=== PATIENT | male | born 1930 | race Caucasian/White ===

== ENCOUNTER 2016-03-12 19:46 | Inpatient (IN) | payer MEDICARE ==
[~2016-03-12] VITALS: Ht 304.8 cm; Wt 82.1 kg
[~2016-03-12 19:46] MED LIST: ASPI81TA11 PO; CEPH-460 PO; PRIN5TAB PO; SIMV20TA PO
[2016-03-12 20:02] VITALS: BP 180/100; PULSE 89; RESP 18; TEMP 98.1; O2SAT 97; O2SAT 98
[2016-03-12] MEDS ORDERED: SODIUM CHLOR 0.9% 1000 ML INJ 1,000 ML IV ONE (20:10)
[2016-03-12 20:20] VITALS: BP 157/81; PULSE 88; RESP 19; O2SAT 96
[2016-03-12 20:25] LABS: AUTOMATED NEUTROPHIL # 9.2 TH/MM3 (1.8-7.7); BASOPHIL % 0.2 % (0.0-2.0); EOSINOPHIL # 0.1 TH/MM3 (0-0.4); EOSINOPHIL % 0.6 % (0.0-4.0); HEMATOCRIT 37.3 % (39.0-51.0); HEMO FLAGS DIFF FINAL; LYMPH % 5.6 % (9.0-44.0); LYMPHOCYTE # 0.6 TH/MM3 (1.0-4.8); MEAN CELL VOLUME 90.8 FL (80.0-100.0); MONO % 2.9 % (0.0-8.0); NEUT % 90.7 % (16.0-70.0); PLATELET COUNT 190 TH/MM3 (150-450); RED BLOOD COUNT 4.11 MIL/MM3 (4.50-5.90); RED CELL DISTRIBUTION WIDTH 13.2 % (11.6-17.2); WHITE BLOOD COUNT 10.2 TH/MM3 (4.0-11.0)
--- NOTE | 2016-03-12 20:29 | RADHPO ---
EXAM DATE/TIME: 03/12/2016 20:05 [facility] COMPARISON: CT BRAIN W/O CONTRAST, January 03, 2016, 7:19. INDICATIONS : Stroke alert. Weakness. RADIATION DOSE: 59.69 CTDIvol (mGy) This report was called called to Dr. Cochran at 822 MEDICAL HISTORY : Cardiovascular disease. Cerebrovascular disease. SURGICAL HISTORY : None. ENCOUNTER: Initial ACUITY: 1 day PAIN SCALE: 3/10 LOCATION: cranial TECHNIQUE: Multiple contiguous axial images were obtained of the head. Using automated exposure control and adj ustment of the mA and/or kV according to patient size, radiation dose was kept as low as reasonably a chievable to obtain optimal diagnostic quality images. FINDINGS: There is marked central and cortical atrophy with dilatation of ventricular and sulcal spaces. There is no parenchymal hemorrhage, acute infarction or mass lesion identified. Old infarct is seen in th e left anterior sylvian region. There are no extra-axial fluid collections appreciated. The posteri or fossa is unremarkable with midline fourth ventricle. The portion of the orbits and paranasal sinu ses visualized are unremarkable. CONCLUSION: Negative for an acute process Old infarct on the left. Raúl Avendaño MD FACR on March 12, 2016 at 20:23 Board Certified Radiologist. This report was verified electronically.
[2016-03-12 20:31] LABS: CHLORIDE 106 MEQ/L (98-107); POTASSIUM 4.4 MEQ/L (3.5-5.1); SODIUM (NA) 141 MEQ/L (136-145)
[2016-03-12 20:34] LABS: ANION GAP 10 MEQ/L (5-15); BICARBONATE 24.9 MEQ/L (21.0-32.0); BLOOD UREA NITROGEN 27 MG/DL (7-18)
[2016-03-12 20:37] LABS: GLOMERULAR FILTRATION RATE 38 ML/MIN (>89); PROTHROMBIN TIME - PATIENT 10.7 SEC (9.8-11.6)
--- NOTE | 2016-03-12 20:44 | PD ---
HPI Chief Complaint: Stroke Alert Time Seen by Provider: 20:10 Travel History International Travel<30 days: No Contact w/Intl Traveler<30days: No Traveled to known affect area: No History of Present Illness HPI This 85-year-old male is brought by private vehicle. He apparently went to a neighbor's house asking for help. The neighbor apparently said that he only would answer questions yes and no. Patient was very unsteady on his feet. About 20 years ago he had a stroke which left him with some right-sided weakness and some mild expressive aphasia. He does take aspirin. The patient at this time is a phasic and unable to give much history. He was apparently alone until he went to the neighbor's house. He was quite unsteady on the way here. [facility] Past Medical History Cardiac Catheterization: Yes High Cholesterol: Yes Chest Pain: Yes Cerebrovascular Accident: Yes (1989) Diminished Hearing: No Hypertension: Yes Immunizations Current: No Past Surgical History Tonsillectomy: Yes Social History Alcohol Use: Yes (SHOT OF WINE AT DINNER) Tobacco Use: No Substance Use: No Allergies-Medications (Allergen,Severity, Reaction): Coded Allergies: Penicillin (Verified Allergy, Intermediate, RASH, 03/12/16) Reported Meds & Prescriptions Reported Meds & Active Scripts Active Reported Simvastatin 20 Mg Tab 10 Mg PO DAILY Prinivil (Lisinopril) 5 Mg Tab 10 Mg PO DAILY Review of Systems ROS Limitations: Clinical Condition Physical Exam Narrative GENERAL: Well-developed male SKIN: Warm and dry. HEAD: Atraumatic. Normocephalic. EYES: Pupils equal and round. No scleral icterus. No injection or drainage. He keeps his eyes closed most part. He will also on command ENT: No nasal bleeding or discharge. Mucous membranes pink and moist. NECK: Trachea midline. No JVD. CARDIOVASCULAR: Regular rate and rhythm. No murmur appreciated. RESPIRATORY: No accessory muscle use. Clear to auscultation. Breath sounds equal bilaterally. GASTROINTESTINAL: Abdomen soft, non-tender, nondistended. Hepatic and splenic margins not palpable. MUSCULOSKELETAL: No obvious deformities. No clubbing. No cyanosis. No edema. NEUROLOGICAL: Awake and alert. No obvious cranial nerve deficits. He appears symmetrically weak. 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 The right is slightly weaker than the left. The right leg also appears slightly weaker than the left. There is an upgoing Babinski on the right. He is not able to answer questions. He is not able to name objects. PSYCHIATRIC: Not testable Data Data Last Documented VS Vital Signs Date Time Temp Pulse Resp B/P Pulse Ox O2 Delivery O2 Flow Rate FiO2 03/12/16 21:40 90 18 165/84 95 Room Air 03/12/16 20:02 98.1 03/12/16 20:02 21 Orders Cath For Specimen (03/12/16 20:10) Neuro Checks Q2HX12,Q4H (03/12/16 20:10) Nursing Bedside Swallow Assess .ONCE (03/12/16 20:10) Activity Bed Rest (03/12/16 20:10) Diet Npo (03/13/16 Breakfast) Prothrombin Time / Inr (Pt) (03/12/16 20:10) Act Partial Throm Time (Ptt) (03/12/16 20:10) Complete Blood Count With Diff (03/12/16 20:10) Basic Metabolic Panel (Bmp) (03/12/16 20:10) Fibrinogen (03/12/16 20:10) Creatine Kinase (Cpk) (03/12/16 20:10) Troponin I (03/12/16 20:10) Ua Includes Microscopic (03/12/16 20:10) Drug Screen, Random Urine (03/12/16 20:10) Type And Screen (03/12/16 20:10) Ct Brain W/O Iv Contrast(Rout) (03/12/16 ) Electrocardiogram (03/12/16 ) Consult Neurology (03/12/16 20:10) Sodium Chlor 0.9% 1000 Ml Inj (Ns 1000 M (03/12/16 20:10) Blood Glucose (03/12/16 20:10) Ecg Monitoring (03/12/16 20:10) Iv Access Insert/Monitor (03/12/16 20:10) NPO (03/12/16 20:10) Oximetry (03/12/16 20:10) Oxygen Administration (03/12/16 20:10) Resp Oxygen Gatito C Titrat 1-4 L (03/12/16 20:10) Mri Brain W/O Contrast (03/12/16 20:26) Ondansetron Inj (Zofran Inj) (03/12/16 20:45) (Hub Use Only)Inp Phy Cons/Ref (03/12/16 ) Electrocardiogram (03/12/16 20:28) Chest, Single Ap (03/12/16 22:03) Labs Laboratory Tests Test 03/12/16 20:20 White Blood Count 10.2 TH/MM3 Red Blood Count 4.11 MIL/MM3 Hemoglobin 12.3 GM/DL Hematocrit 37.3 % Mean Corpuscular Volume 90.8 FL Mean Corpuscular Hemoglobin 30.0 PG Mean Corpuscular Hemoglobin 33.0 % Concent Red Cell Distribution Width 13.2 % Platelet Count 190 TH/MM3 Mean Platelet Volume 7.2 FL Neutrophils (%) (Auto) 90.7 % Lymphocytes (%) (Auto) 5.6 % Monocytes (%) (Auto) 2.9 % Eosinophils (%) (Auto) 0.6 % Basophils (%) (Auto) 0.2 % Neutrophils # (Auto) 9.2 TH/MM3 Lymphocytes # (Auto) 0.6 TH/MM3 Monocytes # (Auto) 0.3 TH/MM3 Eosinophils # (Auto) 0.1 TH/MM3 Basophils # (Auto) 0.0 TH/MM3 CBC Comment DIFF FINAL Differential Comment Prothrombin Time 10.7 SEC Prothromb Time International 1.0 RATIO Ratio Activated Partial 25.0 SEC Thromboplast Time Fibrinogen 280 mg/dL Sodium Level 141 MEQ/L Potassium Level 4.4 MEQ/L Chloride Level 106 MEQ/L Carbon Dioxide Level 24.9 MEQ/L Anion Gap 10 MEQ/L Blood Urea Nitrogen 27 MG/DL Creatinine 1.70 MG/DL Estimat Glomerular Filtration 38 ML/MIN Rate Random Glucose 156 MG/DL Calcium Level 8.9 MG/DL Total Creatine Kinase 87 U/L Troponin I LESS THAN 0.02 NG/ML Blood Type A NEGATIVE Blood Bank Comment [facility] Medical Decision Making Medical Screen Exam Complete: Yes Emergency Medical Condition: Yes Medical Record Reviewed: Yes Differential Diagnosis Differential includes metabolic disorder, cerebral hemorrhage, CVA Narrative Course Patient appears to have an expressive aphasia and symmetric weakness. He was declared a stroke alert. CT scan shows evidence of previous CVA, left brain. There are no acute abnormalities. Diagnosis Primary Impression: Acute CVA (cerebrovascular accident) Admitting Information Admitting Physician Requests: Admit Abner Sheikh MD Mar 12, 2016 20:44
[2016-03-12] MEDS ORDERED: ONDANSETRON HCL 4 MG/2 ML VIAL IV PUSH ONE (20:45)
[2016-03-12 20:52] LABS: CREATINE KINASE 87 U/L (39-308)
[2016-03-12 21:00] VITALS: BP 163/82; PULSE 87; RESP 18; O2SAT 91
[2016-03-12 21:40] VITALS: BP 165/84; PULSE 90; RESP 18; O2SAT 95
[2016-03-12 22:00] VITALS: O2SAT 97
--- NOTE | 2016-03-12 22:04 | RADHPO ---
EXAM DATE/TIME: 03/12/2016 21:39 [facility] COMPARISON: No previous studies available for comparison. INDICATIONS : Stroke. MEDICAL HISTORY : Hypertension. Myocardial infarction. Carotid stenosis. SURGICAL HISTORY : Carotid endarterectomy. Fusion, lumbar. ENCOUNTER: Initial ACUITY: 1 day PAIN SCORE: Nonresponsive. LOCATION: Bilateral cranial TECHNIQUE: Multiplanar, multisequence MRI of the brain was performed without contrast. FINDINGS: There is no restricted diffusion evident. Moderate periventricular white matter change s are noted with an old infarct in the sylvian region on the left. Ventricular size is appropriate. Posterior fossa is unremarkable. There is no parenchymal hemorrhage. There is no evidence of acute infarction. There is no evidence f or mass effect. CONCLUSION: Old infarct on the left, negative for an acute process. Raúl Avendaño MD FACR on March 12, 2016 at 21:56 Board Certified Radiologist. This report was verified electronically.
[2016-03-12] MEDS ORDERED: NALOXONE HCL 0.4 MG/ML AMP IV PRN (22:15)
[2016-03-12] MEDS ORDERED: SODIUM CHLORIDE 0.9% FLUSH 5 ML FLUSH FLUSH PRN (22:15)
--- NOTE | 2016-03-12 22:29 | RADHPO ---
EXAM DATE/TIME: 03/12/2016 22:12 [facility] COMPARISON: CHEST SINGLE AP, December 21, 2011, 22:35. INDICATIONS : General weakness. Vomiting. MEDICAL HISTORY : None. SURGICAL HISTORY : None. ENCOUNTER: Initial ACUITY: 1 day PAIN SCORE: 0/10 LOCATION: Bilateral chest FINDINGS: Minimal bibasilar parenchymal changes are noted worse on the right than the left. Ther e is no alveolar consolidation, pleural effusion or pneumothorax. Heart and pulmonary vascularity ar e normal. Degenerative changes are seen about both shoulders. CONCLUSION: Minimal bibasilar parenchymal changes worse on the right than the left. Raúl Avendaño MD FACR on March 12, 2016 at 22:25 Board Certified Radiologist. This report was verified electronically.
[2016-03-12 22:45] VITALS: BP 163/87; PULSE 92; RESP 20; O2SAT 97
[2016-03-12] MEDS ORDERED: ASPI1TAB69 PO ×2 (22:54)
[2016-03-13] VITALS (31 sets, daily range): BP systolic 103–164; BP diastolic 43–82; PULSE 58–100; RESP 16–30; TEMP 98–99.1; O2SAT 94–99
[2016-03-13 00:23] LABS: BLOOD, URINE SMALL (NEG); GLUCOSE,URINE NEG (NEG); KETONE, URINE TRACE mg/dL (NEG); NITRITE,URINE NEG (NEG); PH, URINE 6.5 (5.0-8.5)
[2016-03-13 00:33] LABS: BARBITURATES, URINE NEG (NEG)
[2016-03-13 00:35] LABS: HYALINE CAST, URINE 0-2 /lpf (RARE); METHOD OF COLLECTION CLEAN CATCH; MUCUS URINE OCC /lpf (OCC); URINE COLOR YELLOW (YELLW/STRAW)
[2016-03-13 00:36] LABS: SQUAMOUS EPITHELIAL CELL URINE 0-5 /hpf (0-5)
[2016-03-13 00:37] LABS: RENAL EPITHELIAL CELLS 0-5 /hpf
[2016-03-13 00:43] LABS: AMPHETAMINE, URINE NEG (NEG)
[2016-03-13 00:46] LABS: COCAINE, URINE NEG (NEG)
[2016-03-13] MEDS ORDERED: CHLORHEXIDINE GLUCONATE 2 % 1 PACK (2 CLOTHS)(taper/protocol) TOP SCH (04:00)
[2016-03-13] MEDS ORDERED: CHLORHEXIDINE GLUCONATE 2 % 1 PACK (2 CLOTHS)(extra cloths) TOP PRN (05:00)
[2016-03-13 05:24] LABS: AUTOMATED NEUTROPHIL # 7.9 TH/MM3 (1.8-7.7); BASOPHIL % 0.3 % (0.0-2.0); EOSINOPHIL % 0.1 % (0.0-4.0); HEMATOCRIT 35.3 % (39.0-51.0); HEMO FLAGS DIFF FINAL; LYMPH % 5.9 % (9.0-44.0); LYMPHOCYTE # 0.5 TH/MM3 (1.0-4.8); MEAN CORPUSCULAR HEMOGLOBIN 30.5 PG (27.0-34.0); MEAN CORPUSCULAR HGB CONC 32.8 % (32.0-36.0); NEUT % 87.7 % (16.0-70.0); PLATELET COUNT 184 TH/MM3 (150-450); RED BLOOD COUNT 3.79 MIL/MM3 (4.50-5.90); RED CELL DISTRIBUTION WIDTH 13.4 % (11.6-17.2); WHITE BLOOD COUNT 8.9 TH/MM3 (4.0-11.0)
[2016-03-13 05:30] LABS: POTASSIUM 4.8 MEQ/L (3.5-5.1)
[2016-03-13 06:04] LABS: BICARBONATE 26.3 MEQ/L (21.0-32.0)
[2016-03-13] MEDS ORDERED: SODIUM CHLORIDE 0.9% FLUSH 5 ML FLUSH FLUSH SCH (09:00)
--- NOTE | 2016-03-13 09:40 | RADHPO ---
EXAM DATE/TIME: 03/13/2016 08:04 [facility] COMPARISON: No previous studies available for comparison. INDICATIONS : Syncope. MEDICAL HISTORY : Stroke. Hypercholesterolemia. Hypertension. Hyperlipidemia. SURGICAL HISTORY : Tonsillectomy. Cardiac cath. Spinal fusion. ENCOUNTER: Initial ACUITY: 1 day PAIN SCORE: 10 LOCATION: Bilateral neck PEAK SYSTOLIC VELOCITIES (cm/sec): ICA/CCA RATIO: Right: 1.7 Left: 1.5 ICA: Right: 140 Left: 122 CCA: Right: 81 Left: 84 ECA: Right: 112 Left: 124 VERTEBRAL: Right: 48 antegrade Left: 58 antegrade Elevated flow velocities and ICA/CCA ratios have been found to correlate with increased degrees of vessel stenosis, calculated as percentage of diameter relative to a normal segment of distal ICA/CCA FINDINGS: RIGHT CAROTID: Grayscale imaging demonstrates moderate calcifications within the region of the carotid bulb with essie ocities within the proximal internal carotid artery and mid internal carotid artery consistent with a 50-69% stenosis. LEFT CAROTID: No significant stenosis is visualized. The waveforms are within normal limits. VERTEBRAL ARTERIES: Antegrade flow is seen in both vertebral arteries. MISCELLANEOUS: None. CONCLUSION: Velocities within the right proximal and mid internal carotid artery consistent with a 50-69% stenosi s. Moderate vascular calcifications are seen within the carotid bulb bilaterally.. Maureen Diaz MD on March 13, 2016 at 9:33 Board Certified Radiologist. This report was verified electronically.
--- NOTE | 2016-03-13 09:45 | MB ---
cc: SCOTT BELLE MD DATE OF CONSULTATION 03/12/2016 REASON FOR CONSULTATION Stroke alert. HISTORY OF THE PRESENT ILLNESS An 85-year-old male who was brought to the [facility] by a private vehicle. He reportedly went to a neighbor's house asking for help. Last time was seen as per his [id number] who is a physician here, states that it was around 7:30 but not certain about the exact time. When he knocked at the neighbor's house and he was unsteady on his feet and he was having difficulty in his speech. The patient had past medical history of stroke with residual right-sided weakness upper and lower extremities with a baseline "expressive dysphasia" as described by the [id number], but not to the point where he is now in terms of speech difficulty as the [id number] states. Upon arrival to the emergency room the patient was minimally reacting and not answering questions, however, during the encounter when I was with the patient he looked sleepy but he would reply to questions and use by yes and no and occasionally uses some words. The patient is on aspirin 81 mg daily[address] A head CT scan in the emergency department was reported to be negative for an acute process. However, there is evidence of old infarct in the left anterior sylvian fissure with no acute intracranial abnormality. PAST MEDICAL HISTORY 1. Hyperlipidemia. 2. Coronary artery disease. 3. Stroke in the with residual right-sided weakness. 4. Hypertension. PAST SURGICAL HISTORY Tonsillectomy. SOCIAL HISTORY Lives all by himself and independent in his daily activities. He drinks a shot of wine at dinner. Denies tobacco and substance abuse. REVIEW OF SYSTEMS A 12 point review of systems is negative except for what is stated in the HPI. ALLERGIES PENICILLIN. MEDICATIONS 1. Simvastatin. 2. Lisinopril. 3. Aspirin 81 mg. FAMILY HISTORY Noncontributory. PHYSICAL EXAMINATION GENERAL: Not in apparent distress. Poor historian. HEENT: Atraumatic, normocephalic. Intact hearing and intact vision. NECK: Trachea in the midline. No carotid bruits. CARDIOVASCULAR: Regular rate and rhythm. RESPIRATORY: No accessory muscle use. Clear to auscultation. No wheezes. MUSCULOSKELETAL: No obvious deformity, clubbing, cyanosis or edema. NEUROLOGICAL: Awake, alert, oriented, intact naming. Intact repetition. No diplopia. No nystagmus. Pupils 2-3 mm equally reacting to light. No facial weakness. Intact sensation over the face. Bilateral upper extremities grade 5/5 with no arm drift. Notable bilateral hand tremor (chronic). Bilateral lower extremities unable to accurately assess because of lack of cooperation during the exam, however, he moves both lower extremities equally. Plantae and dorsiflexion 5/5. Right hip flexion 5-/5, left hip flexion 5/5. Reflexes are 3+ right upper and lower extremity, 2+ left upper and lower extremities. Plantars right upgoing, left equivocal. Sensation is intact throughout bilateral and symmetrical. Gait and stance are deferred at this time. PSYCHOLOGIC: Not able to assess at this time. LABORATORY DATA White blood cells 10.2, hemoglobin 12.3, MCV 90.8. INR 1.0.Sodium 141, potassium 4.4, chloride 106 anion gap 10, BUN 27, creatinine 1.7, random glucose 156, calcium 8.9. IMAGING Diagnostic imaging - Head CT scan without contrast was reported with marked central and cortical atrophy with dilation of ventricular sulcal spaces. No parenchymal hemorrhage, acute infarction or mass lesion identified. Old infarction seen in the left anterior sylvian fissure. No extra-axial fluid collection. Negative for an acute abnormality. 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 NIH stroke scale is 0 apart from expressive dysphasia with no hemianopsia. I discussed with the [id number] and his son about the IV tPA, they were reluctant to do that and still given the fact that the exact time of symptoms is unknown, that would make the decision to give IV tPA to be reconsidered, however, the family did not verbally consent to tPA. An administrative technician was called for brain MRI restricted diffusion study, I reviewed and did not appreciate a restricted diffusion, pending official read by radiology. PLAN 1. Neurological checks q.one hourly. 2. Continue aspirin. 3. DVT prophylaxis. 4. GI prophylaxis. 5. PT, OT and speech therapy recommendations are appreciated. 6. Carotid ultrasound. 7. Telemetry. 8. Cardiac echo. 9. MRA brain. 10. MRA neck. Thank you for the opportunity to participate in the care of your patient. MD MARY Ford/KK /9:37 PM /9:38 AM [id number]
[2016-03-13 09:46] LABS: HDL CHOLESTEROL 73.7 MG/DL (40.0-60.0); LDL CHOLESTEROL 51 MG/DL (0-99)
[2016-03-13] MEDS ORDERED: ASPIRIN EC 81 MG TABEC PO SCH (10:45)
--- NOTE | 2016-03-13 12:47 | HHI.HP ---
[facility] Service [place] [facility] Primary Care Physician Lachelle King MD Admission Diagnosis CVA, ALTERED MENTAL STATUS Diagnoses: (1) Expressive dysphasia Diagnosis: Principal (2) History of CVA (cerebrovascular accident) Diagnosis: Secondary (3) Hypertension Diagnosis: Secondary (4) Hyperlipidemia Diagnosis: Secondary Chief Complaint: Expressive dysphasia Travel History International Travel<30 Days: No Contact w/Intl Traveler <30 Da: No Traveled to Known Affected Are: No History of Present Illness 85-year-old male with known history of CVA, expressive dysphasia, hypertension, hyperlipidemia who presented to hospital because of worsening neurological symptoms. The patient himself cannot give any accurate information. The patient's son indicates that his father doesn't remember anything around that episode. Possible some amnesia. The patient does answer questions if answers remained simple to single word answers. Patient was in his normal state of health until yesterday when it was indicated that he had episode of nausea vomiting, shortly after that he had worsening neurological symptoms in which he tried to drive himself to the hospital, however he did not and would not, neighbor's door. At that time is indicated by ER note that they noticed that he had difficulty in speaking can only answer yes and no, had some gait disturbance and patient was brought to the emergency department for evaluation. Initial CT and MRI of the brain did not indicate any acute stroke. Patient was recommended admission for further evaluation management. Upon evaluating the patient today. Son indicates that the patient appears to be at his baseline when he comes to his speech. Workup is still in process. Does appears patient does get frustrated when trying to speak and answer questions. There is no indication that he has any weakness unilaterally or bilaterally. No paresthesia. Review of Systems Constitutional: DENIES: Diaphoretic episodes, Fatigue, Fever, Weight gain, Weight loss, Chills, Dizziness, Change in appetite, Night Sweats Eyes: DENIES: Blurred vision, Diplopia, Eye inflammation, Eye pain, Vision loss , Double Vision Ears, nose, mouth, throat: DENIES: Vertigo, Nasal discharge, Throat pain, Ear Pain, Running Nose, Sinus Pain Respiratory: DENIES: Apneas, Cough, Snoring, Wheezing, Hemoptysis, Sputum production, Shortness of breath Cardiovascular: DENIES: Chest pain, Palpitations, Syncope, Dyspnea on Exertion , Lower Extremity Edema, Orthopnea Gastrointestinal: DENIES: Abdominal pain, Black stools, Bloody stools, Constipation, Diarrhea, Nausea, Vomiting, Difficulty Swallowing, Anorexia Neurologic: COMPLAINS OF: Speech Problems, DENIES: Abnormal gait, Headache, Localized weakness, Paresthesias, Seizures, Tremor, Poor Balance Psychiatric: DENIES: Anxiety, Confusion, Mood changes, Depression Past Family Social History Past Medical History Hypertension Hyperlipidemia History of CVA Past Surgical History Back surgery Reported Medications Last Impressions Carotid Artery Ultrasound 03/13/16 0000 Signed Impressions: Service Date/Time: Sunday, March 13, 2016 08:04 - CONCLUSION: Velocities within the right proximal and mid internal carotid artery consistent with a 50-69%% stenosis. Moderate vascular calcifications are seen within the carotid bulb bilaterally.. Maureen Diaz MD Chest X-Ray 03/12/163 Signed Impressions: Service Date/Time: Saturday, March 12, 2016 22:12 - CONCLUSION: Minimal bibasilar parenchymal changes worse on the right than the left. Raúl Avendaño MD FACR Brain MRI 03/12/166 Signed Impressions: Service Date/Time: Saturday, March 12, 2016 21:39 - CONCLUSION: Old infarct on the left, negative for an acute process. Raúl Avendaño MD FACR Head CT 03/12/16 0000 Signed Impressions: Service Date/Time: Saturday, March 12, 2016 20:05 - CONCLUSION: Negative for an acute process Old infarct on the left. Raúl Avendaño MD FACR Allergies: Coded Allergies: Penicillin (Verified Allergy, Intermediate, RASH, 03/12/16) Family History Reviewed and significant for father having emphysema, Social History Patient states that he quit smoking 15 years ago, he had been smoking since early age. He does drink one glass of wine daily. Denies any illicit drugs Physical Exam Vital Signs Vital Signs Date Time Temp Pulse Resp B/P Pulse Ox O2 Delivery O2 Flow Rate FiO2 03/13/16 08:00 98.2 70 19 119/59 99 03/13/16 07:00 64 17 119/61 03/13/16 06:06 71 03/13/16 06:00 74 19 115/59 95 03/13/16 05:00 72 17 95 03/13/16 04:00 80 18 03/13/16 04:00 76 03/13/16 03:24 98.0 84 22 151/66 03/13/16 03:22 84 18 133/76 96 03/13/16 02:24 86 24 147/73 03/13/16 02:22 86 18 135/59 03/13/16 01:23 100 30 164/68 03/13/16 00:58 98.2 92 25 157/82 96 03/13/16 00:44 90 03/13/16 00:36 95 26 163/78 96 03/13/16 00:35 98.9 90 18 162/75 97 03/12/16 22:45 92 20 163/87 97 Nasal Cannula 2 03/12/16 22:00 97 Nasal Cannula 2.00 03/12/16 22:00 Nasal Cannula 2 03/12/16 21:40 90 18 165/84 95 Room Air 03/12/16 21:00 87 18 163/82 91 Room Air 03/12/16 20:45 97 Room Air 03/12/16 20:45 Room Air 03/12/16 20:20 88 19 157/81 96 Room Air 03/12/16 20:05 Room Air 03/12/16 20:02 98.1 89 18 180/100 98 03/12/16 20:02 97 21 03/12/16 20:02 97 21 Physical Exam GENERAL: Well-developed, well-nourished, in no acute distress. alert and orientated HEENT: Head is normocephalic without any lesions or masses noted. Facial features are symmetric. Eyes: Pupils equal round reactive to light. Extraocular muscles are intact. Conjunctivae were clear. Oropharyngeal: Pharynx without any erythema edema. Tongue is midline without deviation. Buccal mucosa is moist without any masses or lesions NECK: Supple without any masses. Trachea midline no deviation. No JVD, no bruits are appreciated CARDIAC: Regular rhythm, regular rate. S1/S2 are heard. No murmurs gallops or rubs. LUNGS: Clear to auscultation bilaterally. No wheeze, rhonchi or rales. No use of accessory muscles on inspiration or expiration. ABDOMEN: Soft, nontender. Nondistended. Bowel sounds heard in all 4 quadrants. No organomegaly or masses. Negative rebound, negative guarding EXTREMITIES: No edema, pulses are equal bilaterally. No cyanosis or clubbing NEUROLOGY: Mood and affect appear appropriate. Cranial nerves II through XII grossly intact. Muscle strength 5/5 in upper and lower extremities bilaterally. Deep tendon reflexes are 2+ in upper and lower extremities bilaterally. Patient with expressive dysphasia Laboratory Laboratory Tests Test 03/12/16 03/13/16 03/13/16 03/13/16 20:20 00:15 01:00 05:05 White Blood Count 10.2 8.9 Red Blood Count 4.11 3.79 Hemoglobin 12.3 11.6 Hematocrit 37.3 35.3 Mean Corpuscular Volume 90.8 93.0 Mean Corpuscular Hemoglobin 30.0 30.5 Mean Corpuscular Hemoglobin 33.0 32.8 Concent Red Cell Distribution Width 13.2 13.4 Platelet Count 190 184 Mean Platelet Volume 7.2 6.8 Neutrophils (%) (Auto) 90.7 87.7 Lymphocytes (%) (Auto) 5.6 5.9 Monocytes (%) (Auto) 2.9 6.0 Eosinophils (%) (Auto) 0.6 0.1 Basophils (%) (Auto) 0.2 0.3 Neutrophils # (Auto) 9.2 7.9 Lymphocytes # (Auto) 0.6 0.5 Monocytes # (Auto) 0.3 0.5 Eosinophils # (Auto) 0.1 0.0 Basophils # (Auto) 0.0 0.0 CBC Comment DIFF FINAL DIFF FINAL Differential Comment Prothrombin Time 10.7 Prothromb Time International 1.0 Ratio Activated Partial 25.0 Thromboplast Time Fibrinogen 280 Sodium Level 141 141 Potassium Level 4.4 4.8 Chloride Level 106 107 Carbon Dioxide Level 24.9 26.3 Anion Gap 10 8 Blood Urea Nitrogen 27 26 Creatinine 1.70 1.70 Estimat Glomerular Filtration 38 38 Rate Random Glucose 156 130 Calcium Level 8.9 8.0 Total Creatine Kinase 87 Troponin I LESS THAN 0.02 Blood Type A NEGATIVE Antibody Screen NEGATIVE Blood Bank Comment Urine Collection Type CLEAN CATCH Urine Color YELLOW Urine Turbidity CLEAR Urine pH 6.5 Urine Specific [place] 1.016 Urine Protein 30 Urine Glucose (UA) NEG Urine Ketones TRACE Urine Occult Blood SMALL Urine Nitrite NEG Urine Bilirubin NEG Urine Leukocyte Esterase NEG Urine RBC 4-9 Urine Squamous Epithelial 0-5 Cells Urine Renal Epithelial Cells 0-5 Urine Hyaline Casts 0-2 Urine Mucus OCC Urine Opiates Screen NEG Urine Barbiturates Screen NEG Urine Amphetamines Screen NEG Urine Benzodiazepines Screen NEG Urine Cocaine Screen NEG Urine Cannabinoids Screen NEG Nasal Screen MRSA (PCR) NEGATIVE Erythrocyte Sedimentation Rate 10 Triglycerides Level 50 Cholesterol Level 135 LDL Cholesterol 51 HDL Cholesterol 73.7 Cholesterol/HDL Ratio 1.83 Vitamin B12 Level 403 Folate GREATER THAN 20.0 Thyroid Stimulating Hormone 1.310 3rd Gen Result Diagram: 03/13/16 0505 03/13/16 0505 Imaging Last Impressions Carotid Artery Ultrasound 03/13/16 0000 Signed Impressions: Service Date/Time: Sunday, March 13, 2016 08:04 - CONCLUSION: Velocities within the right proximal and mid internal carotid artery consistent with a 50-69%% stenosis. Moderate vascular calcifications are seen within the carotid bulb bilaterally.. Maureen Diaz MD Chest X-Ray 03/12/163 Signed Impressions: Service Date/Time: Saturday, March 12, 2016 22:12 - CONCLUSION: Minimal bibasilar parenchymal changes worse on the right than the left. Raúl Avendaño MD FACR Brain MRI 03/12/166 Signed Impressions: Service Date/Time: Saturday, March 12, 2016 21:39 - CONCLUSION: Old infarct on the left, negative for an acute process. Raúl Avendaño MD FACR Head CT 03/12/16 0000 Signed Impressions: Service Date/Time: Saturday, March 12, 2016 20:05 - CONCLUSION: Negative for an acute process Old infarct on the left. Raúl Avendaño MD FACR Assessment and Plan Assessment and Plan Expressive dysphasia, and a patient with known history of CVA and expressive dysphasia CT and MRI of the brain do not indicate any acute abnormalities. MRI does show old infarct on the left Carotid ultrasound shows 50-69% stenosis on the right carotid artery. Echocardiogram is pending Continue PT/OT/ST Continue aspirin Hypertension Permissive hypertension until cleared by neurology Hyperlipidemia LDL 73 Continue statin DVT prevention Sequential compression devices Written by Guy Lucero PA-C, acting as scribe for Dr. Orantes on 03/13/16 at 1250. The documentation accurately reflects the work and decisions performed face-to- face by Dr. Orantes on 03/13/16 at 1250. Discharge disposition Discharge home in stable condition Activity: Ad cesar. Diet: Healthy heart diet Medications per medication reconciliation Follow-up with primary medical doctor in one week Physician Certification 2 Midnight Certification Type: Admission for Inpatient Services Order for Inpatient Services The services are ordered in accordance with Medicare regulations or non- Medicare payer requirements, as applicable. In the case of services not specified as inpatient-only, they are appropriately provided as inpatient services in accordance with the 2-midnight benchmark. Estimated LOS (days): 1 days is the estimated time the patient will need to remain in the hospital, assuming treatment plan goals are met and no additional complications. Post-Hospital Plan: Not yet determined Problem Qualifiers (1) Hypertension: Qualified Code: I15.9 - Secondary hypertension (2) Hyperlipidemia: Qualified Code: E78.5 - Hyperlipidemia, unspecified hyperlipidemia type Guy Lucero Mar 13, 2016 12:47 Spring Orantes MD Mar 13, 2016 19:46
[2016-03-13] MEDS ORDERED: PRAVASTATIN SOD 20 MG TAB PO SCH (13:30)
[2016-03-13] MEDS ORDERED: LISINOPRIL 10 MG TAB PO SCH (13:30)
--- NOTE | 2016-03-13 16:09 | EC ---
Study Study Date:03/13/2016 STUDY CONCLUSIONS SUMMARY - Left ventricle: The cavity size was normal. Wall thickness was normal. Systolic function was normal. The estimated ejection fraction was in the range of 55% to 60%. Wall motion was normal; there were no regional wall motion abnormalities. - Aortic valve: Valve area: 2.76cm^2 (Vmax). If LV function is below 40, please consider prescribing an ACEI or ARB or document rationale for non-use. PROCEDURE DATA STUDY STATUS: Elective. Procedure: Transthoracic echocardiography. Image quality was fair. Scanning was performed from the parasternal, apical, and subcostal acoustic windows. Study completion: The patient tolerated the procedure well. Transthoracic echocardiography. M-mode, complete 2D, complete spectral Doppler, and color Doppler. Patient status: Inpatient. CARDIAC ANATOMY LEFT VENTRICLE: The cavity size was normal. Wall thickness was normal. Systolic function was normal. The estimated ejection fraction was in the range of 55% to 60%. Wall motion was normal; there were no regional wall motion abnormalities. AORTIC VALVE: Trileaflet; normal thickness leaflets. Doppler: Transvalvular velocity was within the normal range. There was no stenosis. No regurgitation. Valve area: 2.76cm^2 (Vmax). AORTA: Aortic root: The aortic root was normal in size. MITRAL VALVE: Structurally normal valve. Doppler: Transvalvular velocity was within the normal range. There was no evidence for stenosis. Trace regurgitation. LEFT ATRIUM: The atrium was normal in size. RIGHT VENTRICLE: The cavity size was normal. Wall thickness was normal. PULMONIC VALVE: Doppler: Transvalvular velocity was within the normal range. There was no evidence for stenosis. No regurgitation. TRICUSPID VALVE: Structurally normal valve. Doppler: Transvalvular velocity was within the normal range. No regurgitation. PULMONARY ARTERY: The main pulmonary artery was normal-sized. Systolic pressure was within the normal range. RIGHT ATRIUM: The atrium was normal in size. PERICARDIUM: There was no pericardial effusion. SYSTEMIC VEINS: Inferior vena cava: Not visualized. BASIC MEASUREMENTS ADULT NORMAL Left ventricle LV internal dimension, ED, chordal level, 44.8 mm 43-52 PLAX LV internal dimension, ES, chordal level, 36.9 mm 23-38 PLAX Fractional shortening, chordal level, PLAX *18 % >29 LV posterior wall thickness, ED 9.08 mm IVS/LVPW ratio, ED 0.98 <1.3 Ventricular septum Septal thickness, ED 8.94 mm Aortic valve Leaflet separation 16 mm 15-26 BASIC MEASUREMENTS ADULT NORMAL Aortic valve Leaflet separation 16 mm 15-26 Aorta Root diameter, ED 32 mm 20-37 Left atrium Anterior-posterior dimension, ES 32 mm 19-40 LA/aortic root ratio 1 DOPPLER MEASUREMENTS ADULT NORMAL Aortic valve Peak velocity, S 148 cm/s Valve area, Vmax 2.76 cm^2 Mitral valve Peak E-wave velocity 70.1 cm/s Peak A-wave velocity 72.6 cm/s Deceleration time 165 ms 150-230 Peak E/A ratio 1 Maximal regurgitant velocity 318 cm/s LEGEND: Mean values are shown as u=mean value. Asterisk (*) louis values outside specified normal range. Prepared and signed by Davon Quiñones [id number]
[2016-03-13 16:15] LABS: HEMOGLOBIN LA1C 2.3 %
--- NOTE | 2016-03-13 20:11 | EKG ---
Date Performed: 03/12/2016 Time Performed: 20:46:28 PTAGE: 85 years EKG: Sinus rhythm with borderline 1st degree A-V block Inferior/lateral ST-T changes are nonspecific Borderline ECG PREVIOUS TRACING : 01/03/2016 06.48 Compared to prior tracing no significant change DOCTOR: Kam Whipple Interpretating Date/Time 03/13/2016 20:10:25
--- NOTE | 2016-03-13 20:11 | EKG ---
Date Performed: 03/12/2016 Time Performed: 20:28:54 PTAGE: 85 years EKG: Sinus rhythm with borderline 1st degree A-V block Inferior/lateral ST-T changes are nonspecific Borderline ECG PREVIOUS TRACING : 01/03/2016 06.48 Compared to prior tracing no significant change DOCTOR: Kam Whipple Interpretating Date/Time 03/13/2016 20:11:11
[2016-03-13 20:18] LABS: HEMOGLOBIN A1a 1.3 %; HEMOGLOBIN A1b 1.8 %
[2016-03-13 20:19] LABS: HEMOGLOBIN Ao 84.7 %; HEMOGLOBIN P3 5.5 %
== END 2016-03-13 20:04 | disposition home or self-care (01) | DRG 92 ==
LOC: PHED 19:46 → PHEDA 22:13 → PHICU 03-13 00:30
PROVIDERS: ADMIT Family Medicine; ATTEND Family Medicine
DX: R47.02 Dysphasia (principal); I69.351 Hemiplegia and hemiparesis following cerebral infarction affecting right dominant side; I10 Essential (primary) hypertension; E78.5 Hyperlipidemia, unspecified; Z79.82 Long term (current) use of aspirin; R26.81 Unsteadiness on feet; E78.00 Pure hypercholesterolemia, unspecified; I25.10 Atherosclerotic heart disease of native coronary artery without angina pectoris; Z87.891 Personal history of nicotine dependence
CPT/HCPCS: 70450; 70551; 71010; 80048; 80061; 80307; 81001; 82550; 82607; 82746; 83036; 84443; 84484; 85025; 85384; 85610; 85652; 85730; 86850; 86900; 86901; 87641; 93005; 93306; 93880; 96361; 96374; J2405; J7030

== ENCOUNTER → 2016-03-19 | Outpatient (CLI) | payer MEDICARE ==
[~2016-03-19] MED LIST changes: +ASPI1TAB69 PO
[2016-03-19 16:06] LABS: C. DIFF EPI 027 PRESUMPTIVE NEGATIVE (NEGATIVE); C. DIFF TOXIN PCR NEGATIVE (NEGATIVE)
== END ==
LOC: PLAB 09:03
PROVIDERS: ATTEND Family Medicine
DX: R19.7 Diarrhea, unspecified (principal)
CPT/HCPCS: 87328; 87329; 87493; 87506

== ENCOUNTER → 2016-11-07 | Outpatient (CLI) | payer MEDICARE ==
[~2016-11-07] MED LIST changes: +ASPI81CH CHEW; -ASPI81TA11 PO; -CEPH-460 PO
[2016-11-07 09:37] LABS: AUTOMATED NEUTROPHIL # 3.4 TH/MM3 (1.8-7.7); EOSINOPHIL # 0.3 TH/MM3 (0-0.4); EOSINOPHIL % 5.3 % (0.0-4.0); HEMATOCRIT 34.7 % (39.0-51.0); HEMO FLAGS DIFF FINAL; LYMPH % 16.2 % (9.0-44.0); LYMPHOCYTE # 0.8 TH/MM3 (1.0-4.8); MEAN CELL VOLUME 94.6 FL (80.0-100.0); MEAN CORPUSCULAR HEMOGLOBIN 31.5 PG (27.0-34.0); MEAN CORPUSCULAR HGB CONC 33.3 % (32.0-36.0); MONO % 10.5 % (0.0-8.0); PLATELET COUNT 167 TH/MM3 (150-450); RED BLOOD COUNT 3.67 MIL/MM3 (4.50-5.90); RED CELL DISTRIBUTION WIDTH 13.7 % (11.6-17.2)
[2016-11-07 09:55] LABS: ANION GAP 5 MEQ/L (5-15); AST (GOT) 26 U/L (15-37); BICARBONATE 27.4 MEQ/L (21.0-32.0); BLOOD UREA NITROGEN 38 MG/DL (7-18); CHLORIDE 111 MEQ/L (98-107); GLOMERULAR FILTRATION RATE 38 ML/MIN (>89); GLUCOSE,FASTING 87 MG/DL (74-99); POTASSIUM 5.3 MEQ/L (3.5-5.1); SODIUM (NA) 143 MEQ/L (136-145)
[2016-11-07 10:06] LABS: ALKALINE PHOSPHATASE 40 U/L (45-117); ALT (GPT) 23 U/L (12-78); HDL CHOLESTEROL 65.2 MG/DL (40.0-60.0); LDL CHOLESTEROL 33 MG/DL (0-99); TOTAL BILIRUBIN ADULT 0.6 MG/DL (0.2-1.0)
== END ==
LOC: PLAB 07:45
PROVIDERS: ATTEND Family Medicine
DX: R40.4 Transient alteration of awareness (principal); I63.30 Cerebral infarction due to thrombosis of unspecified cerebral artery; F51.02 Adjustment insomnia; F32.9 Major depressive disorder, single episode, unspecified; N18.9 Chronic kidney disease, unspecified; D63.1 Anemia in chronic kidney disease; L98.9 Disorder of the skin and subcutaneous tissue, unspecified
CPT/HCPCS: 36415; 80053; 80061; 82652; 84443; 85025

== ENCOUNTER → 2016-11-27 | Outpatient (CLI) | payer MEDICARE ==
[2016-11-27 14:22] LABS: C. DIFF EPI 027 PRESUMPTIVE NEGATIVE (NEGATIVE)
== END ==
LOC: PLAB 10:13
PROVIDERS: ATTEND Physician Assistant Medical
DX: R19.5 Other fecal abnormalities (principal)
CPT/HCPCS: 87493

== ENCOUNTER → 2016-12-02 | Outpatient (CLI) | payer MEDICARE ==
[2016-12-02 09:59] LABS: AUTOMATED NEUTROPHIL # 5.1 TH/MM3 (1.8-7.7); BASOPHIL # 0.1 TH/MM3 (0-0.2); BASOPHIL % 0.8 % (0.0-2.0); EOSINOPHIL # 0.2 TH/MM3 (0-0.4); EOSINOPHIL % 3.1 % (0.0-4.0); HEMATOCRIT 35.5 % (39.0-51.0); LYMPH % 11.9 % (9.0-44.0); LYMPHOCYTE # 0.8 TH/MM3 (1.0-4.8); MEAN CELL VOLUME 92.5 FL (80.0-100.0); MEAN CORPUSCULAR HEMOGLOBIN 30.2 PG (27.0-34.0); MEAN CORPUSCULAR HGB CONC 32.6 % (32.0-36.0); MONO % 7.6 % (0.0-8.0); NEUT % 76.6 % (16.0-70.0); PLATELET COUNT 190 TH/MM3 (150-450); RED BLOOD COUNT 3.84 MIL/MM3 (4.50-5.90); WHITE BLOOD COUNT 6.7 TH/MM3 (4.0-11.0)
[2016-12-02 10:01] LABS: HEMO FLAGS DIFF FINAL
--- NOTE | 2016-12-02 12:35 | EKG ---
Date Performed: 12/02/2016 Time Performed: 10:10:03 PTAGE: 85 years EKG: SINUS BRADYCARDIA BORDERLINE ECG Compared to prior tracing no significant change PREVIOUS TRACING : 03/12/2016 20.46 DOCTOR: Misael Tobias Interpretating Date/Time 12/02/2016 12:29:51
== END ==
LOC: PHPRE 08:57
PROVIDERS: ATTEND Ophthalmology
DX: Z01.812 Encounter for preprocedural laboratory examination (principal); H26.9 Unspecified cataract; I25.2 Old myocardial infarction
CPT/HCPCS: 36415; 85025; 93005

== ENCOUNTER → 2016-12-09 | Day surgery (SDC) | payer MEDICARE ==
--- NOTE | 2016-12-02 13:51 | MH ---
cc: [facility], DATE OF ADMISSION: 12/09/2016 ADMISSION DIAGNOSIS Cataract, left eye. HISTORY OF PRESENT ILLNESS This 85-year-old white male is coming through [facility] for the purpose of a lens extraction of the left eye with intraocular lens implant under local anesthesia. He has noted decreasing visual acuity interfering with his daily activities and elected to have the above procedure. His best-corrected visual acuity is 20/20 -2 in the right eye and 20/70 in the left eye in room light. PAST MEDICAL HISTORY The patient has a history of a stroke and myocardial infarction in 1989. PAST SURGICAL HISTORY Surgical history includes that of back surgery in the , tonsillectomy as a child and cataract surgery in the right eye as well as YAG laser posterior capsulotomy in the right eye. MEDICATIONS Daily medications include: 1. Simvastatin. 2. Lisinopril. 3. 81 mg of aspirin. ALLERGIES HE IS ALLERGIC TO PENICILLIN. SOCIAL HISTORY He was a one pack per day smoker for 40 years in the past but he quit in 1989, and has one glass of wine with dinner or less. FAMILY HISTORY Positive for a son with fourth cranial nerve palsy. REVIEW OF SYSTEMS HEAD: Patient denies severe headaches, dizziness or recent head injury. EARS: Patient denies hearing loss, ear pain, discharge or ringing in the ears. NOSE: The patient has some nasal discharge due to sinus and allergies. No obstruction or frequent colds. MOUTH AND THROAT: Patient denies soreness of the mouth or tongue, bleeding gums, trouble swallowing, changes in voice or sore throat. NECK: Patient denies neck pain or swelling, limitation of neck movement or neck injury. CARDIOPULMONARY SYSTEM: He states when he clears his throat occasionally he coughs and has some sputum production. Patient denies shortness of breath, orthopnea, chronic cough, hemoptysis, chest pain, wheezing, palpitations or light-headedness. GI SYSTEM: Patient denies poor appetite, nausea, vomiting, abdominal pain, ulcers, hemorrhoids or change in bowel habits. SYSTEM: He has urinary frequency, 4-5 times a day. Denies dysuria or change in urine color. NERVOUS SYSTEM: He had a stroke in 1989 and has some weakness in his legs from age. Denies convulsions or vertigo. PHYSICAL EXAMINATION VITAL SIGNS: Blood pressure 118/64, pulse 64, respirations 20. HEAD: Normocephalic, atraumatic. NOSE: Without rhinorrhea. THROAT: Clear. NECK: Supple. CHEST: Clear. HEART: Regular rhythm. ABDOMEN: Without tenderness. EXTREMITIES: Without edema. NEUROLOGIC: Within normal limits. MENTAL STATUS: Within normal limits. EYE EXAM: The patient's best-corrected visual acuity is 20/20 -2 in the right eye and 20/70 in the left eye in room light. Visual molina are full to confrontation testing. Extraocular muscle exam reveals full versions with orthophoria at distance and near. Pupils are 3 mm equal, round and react to light without afferent defect. Anterior segment examination reveals corneal guttata in both eyes. There is some transillumination at the pupillary margin of each eye. A posterior chamber intraocular lens is in place in the right eye and a nuclear sclerotic cataract which is dense is present in the left. Intraocular pressure is 13 in the right eye and 16 in the left by applanation tonometry. Dilated fundus exam revealed sharp disks with cup-to-disk ratio of 0.3 bilaterally. The macula is clear bilaterally. An atrophic area is noted superonasally in the right eye which is 3 disk diameters in size. 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 IMPRESSION 1. Cataract, left eye. 2. Pseudophakia, right eye. 3. Corneal guttata. PLAN Lens extraction of the left eye with intraocular lens implant under local anesthesia. Iris retractors may be used if the pupil does not dilate well enough. The patient has been cleared medically. He has been counseled as to the risks, benefits and alternatives and elected to proceed. The risks included counseling regarding a possible corneal procedure if his cornea does not hold up due to his history of guttata. MD MAXIMILIAN Means/NAZARIO /1:01 PM /1:38 PM
[~2016-12-09] MED LIST changes: +ACETYLCHOLINE CHL OPHT SOLN 1:100 2 ML VIAL ONE; -ASPI1TAB69 PO; +CHLORHEXIDINE GLUCONATE 2 % 1 PACK (2 CLOTHS) TOPICAL PRN; +EPINEPHrine HCL (1:1000) 1 MG/ML VIAL ONE; +HYALURONIDASE/LIDOCAINE/BUPIVACAINE 4.5 ML SYR LEFT EYE ONE; +HYALURONIDASE/LIDOCAINE/BUPIVACAINE 6 ML SYR LEFT EYE ONE; +INSULIN HUMAN REGULAR 1,000 UNITS/10 ML VIAL SQ PRN; +LACTATED RINGER'S 1000 ML IV PRN; +METOPROLOL TARTRATE 25 MG TAB PO PRN; +PILOCARPINE HCL 2% OPHT SOLN 15 ML BTL ONE; +POVIDONE IODINE 5% (ANTISEPSIS KIT) 4 APPLICATIONS EACH NARE PRN; +PROPARACAINE HCL 0.5% OPHT SOLN 15 ML BTL LEFT EYE ONE; +PROPOFOL 200 MG/20 ML AMP ONE; +SODIUM CHLORID 0.9% 500 ML IV PRN; +TOBRAMYCIN/DEXAMETHASONE OPTH OINT 3.5 GM TUBE ONE; +VISCOAT OPHT IRRIG SOLN 0.75 ML SYRINGE ONE
[2016-12-09] MEDS: DICLOFENAC SOD 0.1% OPHT SOLN 2.5 ML BTL LEFT EYE SCH ×4 (09:45→09:54)
[2016-12-09] MEDS: CYCLOPENTOLATE HCL 1% OPHT SOLN 2 ML BTL LEFT EYE SCH ×4 (09:45→09:54)
[2016-12-09] MEDS: TROPICAMIDE 1% OPHT SOLN 15 ML BTL LEFT EYE SCH ×4 (09:45→09:54)
[2016-12-09] MEDS: GATIFLOXACIN 0.5% OPHT SOLN 2.5 ML BTL LEFT EYE SCH ×4 (09:45→09:54)
[2016-12-09] MEDS: PHENYLEPHRINE HCL 2.5% OPTH SOLN 2 ML BTL LEFT EYE SCH ×4 (09:45→09:54)
[2016-12-09 10:00] VITALS: PULSE 55
[2016-12-09 10:14] VITALS: PULSE 57
--- NOTE | 2016-12-09 13:34 | MP ---
cc: WINSTON [facility] DATE OF SURGERY 12/09/2016 PREOPERATIVE DIAGNOSIS: Cataract left eye. POSTOPERATIVE DIAGNOSIS: Cataract left eye. OPERATION: Extracapsular cataract extraction with posterior chamber intraocular lens implant by phacoemulsification, left eye. SURGEON: Winston Padron M.D. ANESTHESIA: Local. COMPLICATIONS: None. INDICATIONS: See history and physical previously dictated. OPERATIVE PROCEDURE: The patient had adequate retrobulbar and eyelid blocks administered in the holding area and was brought to the operating room. The left eye was prepped and draped in the usual sterile ophthalmic manner. A lid speculum was inserted in the left eye. A 4-0 silk bridle suture was placed through the conjunctiva near the superior rectus muscle and it was tagged to the drape. A fornix-based conjunctival flap was prepared spanning approximately 5 mm in width. Hemostasis was obtained with wet-field cautery. A 3.5 mm groove was made 1 mm from the limbus and dissected up to the limbus in the form of a scleral pocket incision. A stab incision was then made at the 2 o'clock position. Viscoelastic was injected into the anterior chamber. In order to maintain an adequately dilated pupil, it was elected to use iris retractors in this case. Stab incisions were made at the 1 o'clock, 3 o'clock, 5 o'clock, 8 o'clock and 10 o'clock positions. Iris retractors were then inserted through the stab incisions in the peripheral cornea and positioned to enlarge the size of the pupil. The anterior chamber was entered with a 2.75 mm keratome through the scleral pocket incision. A 360 degree continuous curvilinear capsulorrhexis was then performed. Hydrodissection was utilized to divide the nucleus into inner and outer components and to separate the cortex from the capsule. Phacoemulsification was then utilized to remove the nucleus. The outer nuclear layer was removed with irrigation and aspiration and short bursts of ultrasound as necessary. The cortex was removed with the irrigation-aspiration handpiece. The posterior capsule was polished with the capsule polisher. Viscoelastic was injected into the capsular bag. The intraocular lens was inspected and found to be in good condition. The lens utilized was an Ozzie, model number [id number] with a power of +23.5 diopters. The lens was inserted into the capsular bag. The five iris retractors were removed. The viscoelastic in the anterior chamber was then removed with the irrigation-aspiration hand piece. Viscoelastic was also removed from beneath the intraocular lens. The anterior chamber was filled with Miochol-E through the stab incision and pressurized. The wound was checked for leaks at this pressure and normalized pressure and there were none. The 4-0 bridle suture was removed. The conjunctival flap was brought down over the wound and secured with cautery. Pilocarpine 2% eye drops were instilled topically. The lid speculum was removed. TobraDex ophthalmic ointment was applied. The eye was double patched and shielded. The patient tolerated the procedure well and left the Operating Room in satisfactory condition. MD MAXIMILIAN Means/SSB /1:01 PM /1:28 PM
[2016-12-09 13:45] VITALS: BP 116/48; PULSE 71; RESP 16; TEMP 97.9; O2SAT 96
== END | disposition home or self-care (01) ==
LOC: PHSDC 08:08
PROVIDERS: ATTEND Ophthalmology
DX: H26.9 Unspecified cataract (principal)
CPT/HCPCS: 00142; 66984; J0171; J7040; V2632

== ENCOUNTER 2017-01-04 06:19 | Emergency (ER) | payer MEDICARE ==
[~2017-01-04] VITALS: Ht 182.9 cm; Wt 80.5 kg
[~2017-01-04 06:19] MED LIST changes: -ACETYLCHOLINE CHL OPHT SOLN 1:100 2 ML VIAL ONE; +ASPI-516 CHEW; -ASPI81CH CHEW; -CHLORHEXIDINE GLUCONATE 2 % 1 PACK (2 CLOTHS) TOPICAL PRN; -EPINEPHrine HCL (1:1000) 1 MG/ML VIAL ONE; -HYALURONIDASE/LIDOCAINE/BUPIVACAINE 4.5 ML SYR LEFT EYE ONE; -HYALURONIDASE/LIDOCAINE/BUPIVACAINE 6 ML SYR LEFT EYE ONE; -INSULIN HUMAN REGULAR 1,000 UNITS/10 ML VIAL SQ PRN; -LACTATED RINGER'S 1000 ML IV PRN; -METOPROLOL TARTRATE 25 MG TAB PO PRN; -PILOCARPINE HCL 2% OPHT SOLN 15 ML BTL ONE; -POVIDONE IODINE 5% (ANTISEPSIS KIT) 4 APPLICATIONS EACH NARE PRN; -PROPARACAINE HCL 0.5% OPHT SOLN 15 ML BTL LEFT EYE ONE; -PROPOFOL 200 MG/20 ML AMP ONE; -SODIUM CHLORID 0.9% 500 ML IV PRN; -TOBRAMYCIN/DEXAMETHASONE OPTH OINT 3.5 GM TUBE ONE; -VISCOAT OPHT IRRIG SOLN 0.75 ML SYRINGE ONE
[2017-01-04 06:21] VITALS: BP 124/70; PULSE 82; RESP 16; TEMP 97.5; O2SAT 95
[2017-01-04] MEDS ORDERED: ALBUAER3 INH (07:15)
[2017-01-04] MEDS ORDERED: INSPIREASE DRUG1 EA (07:15)
--- NOTE | 2017-01-04 07:15 | PD ---
HPI Chief Complaint: Respiratory Symptoms Time Seen by Provider: 06:44 Travel History International Travel<30 days: No Contact w/Intl Traveler<30days: No Traveled to known affect area: No History of Present Illness HPI This is an 86-year-old male who presents to the emergency department with 1 week of cough, intermittent, worse in the evenings, worse with laying flat, associated with some clear sputum production. He does say he feels like his legs are a little bit swollen. He denies any fevers or chills. He has about a [id number] smoking history. PFSH Past Medical History Hx Anticoagulant Therapy: Yes (asa) Arthritis: Yes Cancer: No Cardiac Catheterization: Yes Cardiovascular Problems: No High Cholesterol: Yes Chest Pain: Yes Cerebrovascular Accident: Yes (1989) Diabetes: No Diminished Hearing: No Endocrine: No Genitourinary: No Hepatitis: No Hiatal Hernia: No Herniated Disk: Yes Hypertension: Yes Immune Disorder: No Musculoskeletal: No Neurologic: Yes (CVA 1989) Psychiatric: No Reproductive: No Respiratory: No Immunizations Current: No Thyroid Disease: No Influenza Vaccination: Yes Past Surgical History Abdominal Surgery: No AICD: No Cardiac Surgery: No Ear Surgery: No Endocrine Surgery: No Eye Surgery: Yes (BILATERAL CATARACTS) Genitourinary Surgery: No Gynecologic Surgery: No Joint Replacement: No Oral Surgery: Yes Pacemaker: No Thoracic Surgery: No Tonsillectomy: Yes Social History Alcohol Use: Yes ("OCCASIONAL WINE AT DINNER") Tobacco Use: No (QUIT 1989) Substance Use: No Allergies-Medications (Allergen,Severity, Reaction): Coded Allergies: penicillin G (Unverified Allergy, Intermediate, RASH, 01/04/17) Reported Meds & Prescriptions Reported Meds & Active Scripts Active Reported Aspirin 81 Mg Chew 81 Mg CHEW EVERY OTHER DAY Simvastatin 20 Mg Tab 20 Mg PO DAILY Prinivil (Lisinopril) 5 Mg Tab 5 Mg PO DAILY Review of Systems Except as stated in HPI: all other systems reviewed are Neg Physical Exam Narrative GENERAL:Well appearing, no acute distress SKIN: Focused skin assessment warm and dry. HEAD: Atraumatic. Normocephalic. EYES: Pupils equal and round. No injection or drainage. ENT: Moist mucous membranes NECK: Trachea midline. CARDIOVASCULAR: Regular rate and rhythm. No murmur appreciated. 1+ bilateral pitting edema in the lower extremities. RESPIRATORY: Clear to auscultation. Breath sounds equal bilaterally. GASTROINTESTINAL: Abdomen soft, non-tender, nondistended. MUSCULOSKELETAL: No obvious deformities. NEUROLOGICAL: Awake and alert. No obvious cranial nerve deficits. Moving all extremities. PSYCHIATRIC: Appropriate mood and affect; insight and judgment normal. Data Data Last Documented VS Vital Signs Date Time Temp Pulse Resp B/P (MAP) Pulse Ox O2 Delivery O2 Flow Rate FiO2 01/04/17 06:21 97.5 82 16 124/70 (88) 95 MDM Medical Decision Making Medical Screen Exam Complete: Yes Emergency Medical Condition: Yes Differential Diagnosis Congestive heart failure, bronchitis, pneumonia, pleural effusion Narrative Course This is an 86-year-old male who presents to the emergency department with cough that's worse in the evenings. He has normal oxygen saturation. Given his lower extremity edema and orthopnea I think it's reasonable to obtain a chest x- ray to evaluate for possible pulmonary edema. If this is reassuring at think the patient likely has bronchitis and might benefit from a bronchodilator. Patient will be discharged with albuterol. I don't think he requires any additional workup and he can follow-up with his primary care physician given his well appearance. Diagnosis Primary Impression: Bronchitis Patient Instructions: General Instructions Additional Instructions: If you develop severe shortness of breath, chest pain, or difficulty breathing return to the emergency department. Use albuterol every 4 hours for the next 2 days. Then use as needed for wheezing. Follow up with your primary care physician in 2-3 days if your symptoms have not improved. Med/Other Pt SpecificInfo: Prescription(s) given Scripts Spacer/Device For Mdi (Inspirease Drug Delivery) 1 Ea Mis EA .ROUTE DIRECTED, #1 0 Refills Prov: Debi Church MD 01/04/17 Albuterol 8.5 GM Inh (Proair Hfa 8.5 GM Inh) 90 Mcg/Act Aer 2 PUFF INH Q4-6H Y for SHORTNESS OF BREATH, #1 INHALER 0 Refills 108 mcg/actuation Prov: Debi Church MD 01/04/17 Disposition: 01 DISCHARGE HOME Condition: Stable Debi Church MD Jan 04, 2017 07:15
--- NOTE | 2017-01-04 07:54 | RADRPT ---
EXAM DATE/TIME: 01/04/2017 07:22 [facility] COMPARISON: CHEST PA & LAT, January 03, 2016, 7:40. INDICATIONS : Cough, short of breath MEDICAL HISTORY : None. SURGICAL HISTORY : None. ENCOUNTER: Initial ACUITY: 1 week PAIN SCORE: 0/10 LOCATION: Bilateral chest FINDINGS: Bibasilar reticulonodular interstitial prominence is seen in both lung bases. There is evidence of pr evious granulomas disease with calcified granulomas in the right lung. The mid to upper lung molina a re otherwise clear. There is no evidence of consolidating airspace disease. Lungs are hyperinflated Heart is normal in size. Atherosclerotic changes are seen in the aorta. There is calcified plaque and tortuosity. CONCLUSION: Bibasilar interstitial prominence characteristic of either chronic lung changes or mild pneumonitis. Mid and upper lung molina are clear. No evidence of acute congestion. COPD Garrett Rivers MD on January 04, 2017 at 7:50 Board Certified Radiologist. This report was verified electronically.
[2017-01-04] MEDS ORDERED: SODIUM CHLORIDE 0.9% FLUSH 10 ML FLUSH IVF PRN (08:15)
[2017-01-04 08:25] LABS: AUTOMATED NEUTROPHIL # 4.7 TH/MM3 (1.8-7.7); BASOPHIL % 0.7 % (0.0-2.0); EOSINOPHIL # 0.3 TH/MM3 (0-0.4); EOSINOPHIL % 4.6 % (0.0-4.0); HEMATOCRIT 31.4 % (39.0-51.0); HEMO FLAGS DIFF FINAL; LYMPH % 10.4 % (9.0-44.0); LYMPHOCYTE # 0.6 TH/MM3 (1.0-4.8); MEAN CELL VOLUME 93.1 FL (80.0-100.0); MEAN CORPUSCULAR HGB CONC 34.4 % (32.0-36.0); MONO % 9.9 % (0.0-8.0); NEUT % 74.4 % (16.0-70.0); PLATELET COUNT 177 TH/MM3 (150-450); RED BLOOD COUNT 3.38 MIL/MM3 (4.50-5.90); WHITE BLOOD COUNT 6.2 TH/MM3 (4.0-11.0)
[2017-01-04 08:36] LABS: CHLORIDE 109 MEQ/L (98-107); POTASSIUM 4.9 MEQ/L (3.5-5.1); SODIUM (NA) 139 MEQ/L (136-145)
[2017-01-04 08:40] LABS: ANION GAP 4 MEQ/L (5-15); BLOOD UREA NITROGEN 38 MG/DL (7-18); MAGNESIUM 2.1 MG/DL (1.5-2.5)
[2017-01-04 08:43] LABS: ALT (GPT) 16 U/L (12-78); AST (GOT) 15 U/L (15-37); GLOMERULAR FILTRATION RATE 41 ML/MIN (>89)
--- NOTE | 2017-01-04 08:43 | PD ---
Physical Exam Narrative GENERAL: Well-nourished, well-developed patient. Well-appearing SKIN: Warm and dry. HEAD: Normocephalic and atraumatic. EYES: No injection or drainage. ENT: No nasal drainage noted. NECK: Supple, trachea midline. CARDIOVASCULAR: Regular rate and rhythm RESPIRATORY: No increased effort. No accessory muscle use. GASTROINTESTINAL: Abdomen soft, non-tender, nondistended. EXTREMITIES: 1+ pitting edema noted to mid tibia bilaterally NEUROLOGICAL: Awake and alert. Moves all extremities and sensory grossly within normal limits. Normal speech. Data Data Last Documented VS Vital Signs Date Time Temp Pulse Resp B/P (MAP) Pulse Ox O2 Delivery O2 Flow Rate FiO2 01/04/17 08:44 97 Room Air 01/04/17 06:21 97.5 82 16 Orders Orders Chest, Pa & Lat (01/04/17 ) Electrocardiogram (01/04/17 08:07) B-Type Natriuretic Peptide (01/04/17 08:07) Ckmb (Isoenzyme) Profile (01/04/17 08:07) Complete Blood Count With Diff (01/04/17 08:07) Comprehensive Metabolic Panel (01/04/17 08:07) Magnesium (Mg) (01/04/17 08:07) Prothrombin Time / Inr (Pt) (01/04/17 08:07) Act Partial Throm Time (Ptt) (01/04/17 08:07) Troponin I (01/04/17 08:07) Ecg Monitoring (01/04/17 08:07) Iv Access Insert/Monitor (01/04/17 08:07) Oximetry (01/04/17 08:07) Sodium Chloride 0.9% Flush (Ns Flush) (01/04/17 08:15) Ed Discharge Order (01/04/17 09:19) Labs Laboratory Tests Test 01/04/17 08:10 White Blood Count 6.2 TH/MM3 Red Blood Count 3.38 MIL/MM3 Hemoglobin 10.8 GM/DL Hematocrit 31.4 % Mean Corpuscular Volume 93.1 FL Mean Corpuscular Hemoglobin 32.0 PG Mean Corpuscular Hemoglobin Concent 34.4 % Red Cell Distribution Width 13.0 % Platelet Count 177 TH/MM3 Mean Platelet Volume 6.9 FL Neutrophils (%) (Auto) 74.4 % Lymphocytes (%) (Auto) 10.4 % Monocytes (%) (Auto) 9.9 % Eosinophils (%) (Auto) 4.6 % Basophils (%) (Auto) 0.7 % Neutrophils # (Auto) 4.7 TH/MM3 Lymphocytes # (Auto) 0.6 TH/MM3 Monocytes # (Auto) 0.6 TH/MM3 Eosinophils # (Auto) 0.3 TH/MM3 Basophils # (Auto) 0.0 TH/MM3 CBC Comment DIFF FINAL Differential Comment Prothrombin Time 10.9 SEC Prothromb Time International Ratio 1.0 RATIO Activated Partial Thromboplast Time 26.1 SEC Blood Urea Nitrogen 38 MG/DL Creatinine 1.60 MG/DL Random Glucose 80 MG/DL Total Protein 6.3 GM/DL Albumin 3.0 GM/DL Calcium Level 8.5 MG/DL Magnesium Level 2.1 MG/DL Alkaline Phosphatase 53 U/L Aspartate Amino Transf (AST/SGOT) 15 U/L Alanine Aminotransferase (ALT/SGPT) 16 U/L Total Bilirubin 0.3 MG/DL Sodium Level 139 MEQ/L Potassium Level 4.9 MEQ/L Chloride Level 109 MEQ/L Carbon Dioxide Level 26.0 MEQ/L Anion Gap 4 MEQ/L Estimat Glomerular Filtration Rate 41 ML/MIN Total Creatine Kinase 86 U/L Troponin I LESS THAN 0.02 NG/ML B-Type Natriuretic Peptide 52 PG/ML MDM Supervised Visit with [facility]: No Interpretation(s) Last 24 hours Impressions Chest X-Ray 01/04/17 0000 Signed Impressions: Service Date/Time: Wednesday, January 04, 2017 07:22 - CONCLUSION: Bibasilar interstitial prominence characteristic of either chronic lung changes or mild pneumonitis. Mid and upper lung molina are clear. No evidence of acute congestion. COPD Garrett Rivers MD EKG is sinus bradycardia at 55 without consecutive T-wave inversion, ST segment elevation or depression CBC & BMP Diagram 01/04/17 08:10 Total Protein 6.3 L, Albumin 3.0 L, Calcium Level 8.5, Magnesium Level 2.1, Alkaline Phosphatase 53, Aspartate Amino Transf (AST/SGOT) 15, Alanine Aminotransferase (ALT/SGPT) 16, Total Bilirubin 0.3 Patient has no fever or white count so no indication for antibiotics. BNP is normal and has more appearance of chronic scarring on x-ray so no indication for CHF testing or Lasix at this time Narrative Course Signed over to me to follow chest x-ray and reevaluate. If chest x-ray shows abnormality to check basic blood work and reevaluate. Chest x-ray shows scarring versus mild fluid so will add on blood work and patient agrees to this. Patient denies any pain and notes cough and short of breath for one week , he states swelling in his legs is usual for him and he denies prior history of heart failure Labs without emergent findings,Patient denies any new complaints. Patient happy with care, all questions answered. Patient knows that follow up is incumbent on them and to return to the emergency room immediately if new or worsening symptoms develop. Patient given strict return precautions, vitals reviewed and are normal, agrees to further workup as an outpatient. Diagnosis Primary Impression: Cough Patient Instructions: General Instructions Additional Instruction: If you develop severe shortness of breath, chest pain, or fever return to the emergency department. Use albuterol every 4 hours as needed for cough Follow up with your primary care physician on friday if your symptoms have not improved. Med/Other Pt SpecificInfo: Prescription(s) given Scripts Spacer/Device For Mdi (Inspirease Drug Delivery) 1 Ea Mis EA .ROUTE DIRECTED, #1 0 Refills Prov: Debi Church MD 01/04/17 Albuterol 8.5 GM Inh (Proair Hfa 8.5 GM Inh) 90 Mcg/Act Aer 2 PUFF INH Q4-6H Y for SHORTNESS OF BREATH, #1 INHALER 0 Refills 108 mcg/actuation Prov: Debi Church MD 01/04/17 Disposition: 01 DISCHARGE HOME Condition: Stable Tracy Rivers MD Jan 04, 2017 08:43
[2017-01-04 08:44] VITALS: O2SAT 97
[2017-01-04 08:45] LABS: TOTAL BILIRUBIN ADULT 0.3 MG/DL (0.2-1.0)
[2017-01-04 08:46] LABS: ALKALINE PHOSPHATASE 53 U/L (45-117)
[2017-01-04 09:00] LABS: APTT (PATIENT) 26.1 SEC (24.3-30.1); PROTHROMBIN TIME - PATIENT 10.9 SEC (9.8-11.6)
[2017-01-04 09:13] LABS: CREATINE KINASE 86 U/L (39-308)
[2017-01-04 09:36] VITALS: PULSE 77; RESP 18; O2SAT 97
--- NOTE | 2017-01-05 13:27 | EKG ---
Date Performed: 01/04/2017 Time Performed: 08:13:56 PTAGE: 86 years EKG: SINUS BRADYCARDIA BORDERLINE ECG Since PREVIOUS TRACING , no significant change noted PREVIOUS TRACIN12/02/2016 10.10 DOCTOR: Damian Barrett Interpretating Date/Time 01/05/2017 13:26:16
== END 2017-01-04 09:39 | disposition home or self-care (01) ==
LOC: PHED 06:19
DX: J40 Bronchitis, not specified as acute or chronic (principal); R05 Cough; R22.43 Localized swelling, mass and lump, lower limb, bilateral; R06.01 Orthopnea; R94.31 Abnormal electrocardiogram [ECG] [EKG]; I10 Essential (primary) hypertension; E78.00 Pure hypercholesterolemia, unspecified; Z79.82 Long term (current) use of aspirin; Z79.899 Other long term (current) drug therapy; Z87.39 Personal history of other diseases of the musculoskeletal system and connective tissue; Z86.79 Personal history of other diseases of the circulatory system; Z86.69 Personal history of other diseases of the nervous system and sense organs; Z87.891 Personal history of nicotine dependence
CPT/HCPCS: 71020; 80053; 82550; 83735; 83880; 84484; 85025; 85610; 85730; 93005; 99285

== ENCOUNTER 2017-01-16 19:10 | Emergency (ER) | payer MEDICARE ==
[~2017-01-16] VITALS: Ht 182.9 cm; Wt 80.0 kg
[~2017-01-16 19:10] MED LIST changes: +ALBUAER3 INH; +INSPIREASE DRUG1 EA
[2017-01-16 19:16] VITALS: BP 131/60; PULSE 68; RESP 18; TEMP 97.7; O2SAT 95
[2017-01-16 19:25] VITALS: BP 131/60; PULSE 68; RESP 18; TEMP 97.7; O2SAT 95
--- NOTE | 2017-01-16 20:18 | PD ---
HPI Chief Complaint: Fall Time Seen by Provider: 19:23 Travel History International Travel<30 days: No Contact w/Intl Traveler<30days: No Traveled to known affect area: No History of Present Illness HPI The patient is an 86-year-old male that lost balance and fell and sustained a laceration to his dorsal right forearm. 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 The patient denies any bony injury or other injury other than a contusion to the right lower lip. His last tetanus shot was one year ago. The patient already has a plastic surgeon, Dr. Morgan. The patient is Dr. Nhung Crawford's [id number]. PFSH Past Medical History Hx Anticoagulant Therapy: Yes (asa) Arthritis: Yes Cancer: No Cardiac Catheterization: Yes Cardiovascular Problems: No High Cholesterol: Yes Chest Pain: Yes Cerebrovascular Accident: Yes (1989) Diabetes: No Diminished Hearing: No Endocrine: No Genitourinary: No Hepatitis: No Hiatal Hernia: No Herniated Disk: Yes Hypertension: Yes Immune Disorder: No Medical other: Yes (R SIDE WEAKNESS FROM STROKE) Musculoskeletal: No Neurologic: Yes (CVA 1989) Psychiatric: No Reproductive: No Respiratory: No Immunizations Current: No Thyroid Disease: No Tetanus Vaccination: < 5 Years Influenza Vaccination: Yes Past Surgical History Abdominal Surgery: No AICD: No Cardiac Surgery: No Ear Surgery: No Endocrine Surgery: No Eye Surgery: Yes (BILATERAL CATARACTS) Genitourinary Surgery: No Gynecologic Surgery: No Joint Replacement: No Oral Surgery: Yes Pacemaker: No Thoracic Surgery: No Tonsillectomy: Yes Other Surgery: Yes Social History Alcohol Use: Yes ("OCCASIONAL WINE AT DINNER") Tobacco Use: No (QUIT 1989) Substance Use: No Allergies-Medications (Allergen,Severity, Reaction): Coded Allergies: penicillin G (Unverified Allergy, Intermediate, RASH, 01/16/17) Reported Meds & Prescriptions Reported Meds & Active Scripts Active Inspirease Drug Delivery (Spacer/Device For Mdi) 1 Ea Mis Ea .ROUTE DIRECTED Proair Hfa 8.5 GM Inh (Albuterol Sulfate) 90 Mcg/Act Aer 2 Puff INH Q4-6H PRN 108 mcg/actuation Reported Aspirin 81 Mg Chew 81 Mg CHEW EVERY OTHER DAY Simvastatin 20 Mg Tab 20 Mg PO DAILY Prinivil (Lisinopril) 5 Mg Tab 5 Mg PO DAILY Review of Systems Except as stated in HPI: all other systems reviewed are Neg Physical Exam Narrative GENERAL: Well-nourished, well-developed patient in slight apparent distress with his right dorsal forearm laceration. The vital signs are normal. SKIN: Focused skin assessment warm/dry. There is an irregular approximately 12 cm laceration on the dorsal forearm through thin skin. Subcutaneous tissue has been torn off but there is no laceration into the tendons, muscles or nerves. HEAD: Normocephalic. EYES: No scleral icterus. No injection or drainage. NECK: Supple, trachea midline. No JVD or lymphadenopathy. CARDIOVASCULAR: Regular rate and rhythm without murmurs, gallops, or rubs. RESPIRATORY: Breath sounds equal bilaterally. No accessory muscle use. GASTROINTESTINAL: Abdomen soft, non-tender, nondistended. MUSCULOSKELETAL: No cyanosis, or edema. BACK: Nontender without obvious deformity. No CVA tenderness. ENT: There is a contusion on the right lower lip but no loose teeth. There is a minimal laceration that does not require suturing on the lower lip. Data Data Last Documented VS Vital Signs Date Time Temp Pulse Resp B/P (MAP) Pulse Ox O2 Delivery O2 Flow Rate FiO2 01/16/17 20:33 61 16 126/70 (88) 95 Room Air 01/16/17 19:25 97.7 Orders Orders Lidocaine 1% Inj (50 Ml) (Xylocaine 1% I (01/16/17 20:30) [facility] Medical Decision Making Medical Screen Exam Complete: Yes Emergency Medical Condition: Yes Medical Record Reviewed: Yes Differential Diagnosis Laceration requiring suturing, laceration requiring opposing wound edges and bandaging, laceration involving tendons, nerves or vessels Narrative Course The laceration is thin skin laceration with extremely poor holding with respect to use of sutures. The laceration does not involve tendons, nerves or vessels. It does involve subcutaneous tissue. Procedures Procedure Narrative The laceration was copiously irrigated with saline. Under sterile technique, lidocaine without epinephrine was infiltrated in the tissues. 5 stitches of 4- 0 nylon with horizontal mattress technique were put in to oppose the wound edges. The patient tolerated procedure well. The exposed area of tendons and muscles was closed. Impression: Extremity laceration Physician Communication Physician Communication I discussed the patient with Dr. Hughes and Dr. Arredondo. Both agree to see the patient on Friday. Dr. Arredondo is not on our hospital staff but is the patient's plastic surgeon. Dr. Hughes agreed to, see the patient this weekend if there are any problems. If there are no problems, the patient will follow-up with Dr. Morgan on Friday. Diagnosis Primary Impression: Laceration of upper extremity Additional Instructions: As we discussed, if there are problems this weekend we will call Dr. Hughes to come in and see this patient. If there are no problems, the patient will follow-up with Dr. Morgan. Med/Other Pt SpecificInfo: Prescription(s) given Scripts Sulfamethoxazole-Trimethoprim (Bactrim DS) 800-160 Mg Tab 1 TAB PO BID for Infection, #20 TAB 0 Refills Prov: Jung Lucero MD 01/16/17 Disposition: 01 DISCHARGE HOME Condition: Stable Jung Lucero MD Jan 16, 2017 20:18
[2017-01-16] MEDS: LIDOCAINE HCL 1% 50 ML VIAL INFIL ONE (20:26)
[2017-01-16 20:33] VITALS: BP 126/70; PULSE 61; RESP 16; O2SAT 95
[2017-01-16] MEDS ORDERED: BACT800T5 PO (21:00)
[2017-01-16 21:11] VITALS: BP 132/67; PULSE 63; RESP 16; O2SAT 96
[2017-01-16] MEDS ORDERED: SULFAMETHOXAZOLE-TRIMETHOPRIM DS 800-160 MG TAB PO ONE (21:15)
== END 2017-01-16 21:21 | disposition home or self-care (01) ==
LOC: PHED 19:10
DX: S51.811A Laceration without foreign body of right forearm, initial encounter (principal); I69.351 Hemiplegia and hemiparesis following cerebral infarction affecting right dominant side; E78.00 Pure hypercholesterolemia, unspecified; W01.0XXA Fall on same level from slipping, tripping and stumbling without subsequent striking against object, initial encounter; Z87.891 Personal history of nicotine dependence
CPT/HCPCS: 12004

== ENCOUNTER → 2017-02-03 | Outpatient (CLI) | payer MEDICARE ==
[~2017-02-03] MED LIST changes: +BACT800T5 PO
[2017-02-03 16:08] LABS: AUTOMATED NEUTROPHIL # 5.4 TH/MM3 (1.8-7.7); BASOPHIL # 0.1 TH/MM3 (0-0.2); BASOPHIL % 0.8 % (0.0-2.0); EOSINOPHIL # 0.2 TH/MM3 (0-0.4); EOSINOPHIL % 3.3 % (0.0-4.0); HEMATOCRIT 32.8 % (39.0-51.0); HEMO FLAGS DIFF FINAL; LYMPH % 12.1 % (9.0-44.0); LYMPHOCYTE # 0.9 TH/MM3 (1.0-4.8); MEAN CELL VOLUME 94.4 FL (80.0-100.0); MEAN CORPUSCULAR HEMOGLOBIN 32.3 PG (27.0-34.0); MEAN CORPUSCULAR HGB CONC 34.2 % (32.0-36.0); MONO % 9.8 % (0.0-8.0); PLATELET COUNT 240 TH/MM3 (150-450); RED BLOOD COUNT 3.47 MIL/MM3 (4.50-5.90); RED CELL DISTRIBUTION WIDTH 13.6 % (11.6-17.2); WHITE BLOOD COUNT 7.3 TH/MM3 (4.0-11.0)
[2017-02-03 16:17] LABS: BICARBONATE 25.2 MEQ/L (21.0-32.0); POTASSIUM 5.4 MEQ/L (3.5-5.1)
== END ==
LOC: PLAB 14:06
DX: C44.92 Squamous cell carcinoma of skin, unspecified (principal); C44.91 Basal cell carcinoma of skin, unspecified
CPT/HCPCS: 36415; 80048; 85025

== ENCOUNTER 2017-04-27 07:35 | Inpatient (IN) | payer MEDICARE ==
[~2017-04-27] VITALS: Ht 182.9 cm; Wt 78.5 kg
[2017-04-27] VITALS (9 sets, daily range): BP systolic 107–133; BP diastolic 55–79; PULSE 76–103; RESP 16–20; TEMP 98–100.4; O2SAT 88–98
--- NOTE | 2017-04-27 07:54 | PD ---
HPI Chief Complaint: cp Time Seen by Provider: 07:51 Travel History International Travel<30 days: No Contact w/Intl Traveler<30days: No Traveled to known affect area: No History of Present Illness HPI Complaint of chest pain, radiated to the left side of his back... Sort of around the chest wall on the left side rather than straight back. Patient also has had a productive cough of clear sputum but over the past month however has been worsening over the last week with a changing color to yellow. Allergies to penicillin Past medical history significant for a CVA in 1989, [place], hyperlipidemia, hypertension, herniated disc, back fusion surgery. PFSH Past Medical History Hx Anticoagulant Therapy: Yes (asa) Arthritis: Yes Cancer: No Cardiac Catheterization: Yes Cardiovascular Problems: No High Cholesterol: Yes Chest Pain: Yes Cerebrovascular Accident: Yes (1989) Diabetes: No Diminished Hearing: No Endocrine: No Genitourinary: No Hepatitis: No Hiatal Hernia: No Herniated Disk: Yes Hypertension: Yes Immune Disorder: No Musculoskeletal: No Neurologic: Yes (CVA 1989) Psychiatric: No Reproductive: No Respiratory: No Immunizations Current: No Thyroid Disease: No Past Surgical History Abdominal Surgery: No AICD: No Cardiac Surgery: No Ear Surgery: No Endocrine Surgery: No Eye Surgery: Yes (BILATERAL CATARACTS) Genitourinary Surgery: No Gynecologic Surgery: No Joint Replacement: No Oral Surgery: Yes Pacemaker: No Thoracic Surgery: No Tonsillectomy: Yes Other Surgery: Yes Social History Alcohol Use: Yes ("OCCASIONAL WINE AT DINNER") Tobacco Use: No (QUIT 1989) Substance Use: No Allergies-Medications (Allergen,Severity, Reaction): Coded Allergies: penicillin G (Unverified Allergy, Intermediate, RASH, 04/27/17) Reported Meds & Prescriptions Reported Meds & Active Scripts Active Reported Ocuflox Opth Drops (Ofloxacin Opth Drops) 0.3 % Drops 1 Drop LEFT EYE BID Pred Forte Opth 1% (Prednisolone Acetate Opth 1%) 1% Susp 1 Drop LEFT EYE QID Aspirin 81 Mg Chew 81 Mg CHEW EVERY OTHER DAY Simvastatin 20 Mg Tab 20 Mg PO DAILY Prinivil (Lisinopril) 5 Mg Tab 20 Mg PO DAILY Review of Systems General / Constitutional: No: Fever Eyes: No: Visual changes HENT: No: Headaches Cardiovascular: Positive: Chest Pain or Discomfort Respiratory: Positive: Cough, No: Shortness of Breath Gastrointestinal: No: Abdominal Pain Genitourinary: No: Dysuria Musculoskeletal: No: Pain Skin: No Rash Neurologic: No: Weakness Psychiatric: No: Depression Endocrine: No: Polydipsia Hematologic/Lymphatic: No: Easy Bruising Physical Exam Narrative GENERAL: SKIN: Warm and dry. HEAD: Atraumatic. Normocephalic. EYES: Pupils equal and round. No scleral icterus. No injection or drainage. ENT: No nasal bleeding or discharge. Mucous membranes pink and moist. NECK: Trachea midline. No JVD. CARDIOVASCULAR: Regular rate and rhythm. RESPIRATORY: No accessory muscle use. Crackles to left lower lobe. Otherwise tidal volume equal bilaterally. GASTROINTESTINAL: Abdomen soft, non-tender, nondistended. MUSCULOSKELETAL: Extremities without clubbing, cyanosis, or edema. No obvious deformities. NEUROLOGICAL: Awake and alert. No obvious cranial nerve deficits. Motor grossly within normal limits. Five out of 5 muscle strength in the arms and legs. Normal speech. PSYCHIATRIC: Appropriate mood and affect; insight and judgment normal. Data Data Last Documented VS Vital Signs Date Time Temp Pulse Resp B/P (MAP) Pulse Ox O2 Delivery O2 Flow Rate FiO2 04/27/17 08:10 97 Nasal Cannula 2.00 04/27/17 08:03 98.4 83 16 119/78 (92) Orders Orders Electrocardiogram (04/27/17 07:39) Electrocardiogram (04/27/17 07:54) B-Type Natriuretic Peptide (04/27/17 07:54) Ckmb (Isoenzyme) Profile (04/27/17 07:54) Complete Blood Count With Diff (04/27/17 07:54) Comprehensive Metabolic Panel (04/27/17 07:54) Prothrombin Time / Inr (Pt) (04/27/17 07:54) Act Partial Throm Time (Ptt) (04/27/17 07:54) Troponin I (04/27/17 07:54) Lipase (04/27/17 07:54) Chest, Single Ap (04/27/17 07:54) Ecg Monitoring (04/27/17 07:54) Bilateral Bp Monitoring (04/27/17 07:54) Iv Access Insert/Monitor (04/27/17 07:54) Oximetry (04/27/17 07:54) Oxygen Administration (04/27/17 07:54) Aspirin Chew (Aspirin Chew) (04/27/17 08:00) Nitroglycerin 2% Oint (Nitroglycerin 2% (04/27/17 08:00) Sodium Chlorid 0.9% 500 Ml Inj (Ns 500 M (04/27/17 08:00) Ventilation & Perfusion Scan (04/27/17 08:23) Sodium Chlorid 0.9% 500 Ml Inj (Ns 500 M (04/27/17 08:30) Morphine Inj (Morphine Inj) (04/27/17 08:30) Levofloxacin 250 Mg Premix Inj (Levaquin (04/27/17 08:45) Labs Laboratory Tests Test 04/27/17 07:59 Prothrombin Time 11.5 SEC Prothromb Time International Ratio 1.1 RATIO Activated Partial Thromboplast Time 29.0 SEC Blood Urea Nitrogen 30 MG/DL Creatinine 1.70 MG/DL Random Glucose 115 MG/DL Total Protein 7.3 GM/DL Albumin 2.4 GM/DL Calcium Level 8.5 MG/DL Alkaline Phosphatase 65 U/L Aspartate Amino Transf (AST/SGOT) 12 U/L Alanine Aminotransferase (ALT/SGPT) 11 U/L Total Bilirubin 0.7 MG/DL Sodium Level 137 MEQ/L Potassium Level 4.7 MEQ/L Chloride Level 104 MEQ/L Carbon Dioxide Level 25.2 MEQ/L Anion Gap 8 MEQ/L Estimat Glomerular Filtration Rate 38 ML/MIN Total Creatine Kinase 36 U/L Troponin I LESS THAN 0.02 NG/ML Lipase 139 U/L MDM Medical Decision Making Medical Screen Exam Complete: Yes Emergency Medical Condition: Yes Medical Record Reviewed: Yes Interpretation(s) EKG shows normal sinus rhythm, 79 bpm, baseline tremors on the patient has because motion artifact. However no evidence of any major ST elevations. LVH is noted Differential Diagnosis Pneumonia versus pulmonary embolus Narrative Course Patient's GFR is around 38, due to this kidney function the patient cannot have a CT rule out PE study. So a VQ scan will be ordered instead. Patient will be treated with aspirin currently not hypertensive and pain not described as cardiac so will hold on the nitroglycerin. However will provide empiric antibiotics 1 CBC is not resulted Coagulation profile within normal limits Complete metabolic profile shows a BUN of 30 creatinine 1.7 and GFR 38, normal electrolytes. Normal liver function tests, normal lipase. Troponin is negative Back in [address] abdomen and pelvis which showed obstructive uropathy as well as a infrarenal aneurysm Diagnosis Primary Impression: Left lower lobe infiltrate PE versus pneumonia Additional Impression: Renal insufficiency Admitting Information Admitting Physician Requests: Admit Fawad Lozoya MD Apr 27, 2017 07:54
[2017-04-27] MEDS ORDERED: SODIUM CHLORID 0.9% 500 ML INJ 500 ML IV ONE ×2 (08:00→08:30)
[2017-04-27] MEDS ORDERED: NITROGLYCERIN 2% OINT 1 GM PACKET TOP ONE (08:00)
[2017-04-27] MEDS ORDERED: ASPIRIN 81 MG CHEW TAB PO ONE (08:00)
[2017-04-27 08:15] LABS: CHLORIDE 104 MEQ/L (98-107); SODIUM (NA) 137 MEQ/L (136-145)
[2017-04-27 08:18] LABS: CALCIUM 8.5 MG/DL (8.5-10.1)
[2017-04-27 08:19] LABS: ALBUMIN 2.4 GM/DL (3.4-5.0); BICARBONATE 25.2 MEQ/L (21.0-32.0); BLOOD UREA NITROGEN 30 MG/DL (7-18); GLUCOSE,RANDOM 115 MG/DL (74-106); INTERNATIONAL NORMALIZED RATIO 1.1 RATIO; PROTHROMBIN TIME - PATIENT 11.5 SEC (9.8-11.6)
[2017-04-27 08:22] LABS: ALT (GPT) 11 U/L (12-78); AST (GOT) 12 U/L (15-37); GLOMERULAR FILTRATION RATE 38 ML/MIN (>89)
[2017-04-27 08:23] LABS: TOTAL BILIRUBIN ADULT 0.7 MG/DL (0.2-1.0); TOTAL PROTEIN 7.3 GM/DL (6.4-8.2)
[2017-04-27 08:25] LABS: ALKALINE PHOSPHATASE 65 U/L (45-117)
[2017-04-27 08:27] LABS: TROPONIN I LESS THAN 0.02 NG/ML (0.02-0.05)
[2017-04-27] MEDS ORDERED: PRED1SUS LEFT EYE ×2 (08:29)
[2017-04-27] MEDS ORDERED: OCUF0.3D LEFT EYE (08:29)
[2017-04-27] MEDS ORDERED: MORPHINE SULFATE 2 MG/ML INJ IV PUSH ONE (08:30)
--- NOTE | 2017-04-27 08:40 | RADRPT ---
EXAM DATE/TIME: 04/27/2017 08:01 [facility] COMPARISON: CHEST SINGLE AP, March 12, 2016, 22:12. INDICATIONS : Chest pains MEDICAL HISTORY : Myocardial infarction. Stroke. SURGICAL HISTORY : None. ENCOUNTER: Initial ACUITY: 1 day PAIN SCORE: 8/10 LOCATION: Bilateral chest FINDINGS: There is increasing parenchymal consolidation left mid and lower lung. Stable parenchymal changes ri ght base. Mild compensated cardiomegaly. The portion of the bony skeleton visualized is unremarkable . CONCLUSION: Developing parenchymal consolidation left lower lobe. Raúl Avendaño MD FACR on April 27, 2017 at 8:38 Board Certified Radiologist. This report was verified electronically.
[2017-04-27] MEDS ORDERED: LEVOFLOXACIN 250 MG PREMIX INJ 50 ML IV ONE (08:45)
--- NOTE | 2017-04-27 09:02 | EKG ---
Date Performed: 04/27/2017 Time Performed: 07:46:39 PTAGE: 86 years EKG: Sinus rhythm NORMAL ECG PREVIOUS TRACING : 01/04/2017 08.13 DOCTOR: Tacho Peters Interpretating Date/Time 04/27/2017 09:02:01
[2017-04-27 09:18] LABS: BASOPHIL % 0.3 % (0.0-2.0); EOSINOPHIL # 0.1 TH/MM3 (0-0.4); EOSINOPHIL % 0.8 % (0.0-4.0); HEMATOCRIT 29.8 % (39.0-51.0); HEMOGLOBIN 10.3 GM/DL (13.0-17.0); LYMPH % 3.8 % (9.0-44.0); LYMPHOCYTE # 0.5 TH/MM3 (1.0-4.8); MEAN CELL VOLUME 88.2 FL (80.0-100.0); MEAN CORPUSCULAR HEMOGLOBIN 30.4 PG (27.0-34.0); MEAN CORPUSCULAR HGB CONC 34.4 % (32.0-36.0); MEAN PLATELET VOLUME 7.2 FL (7.0-11.0); MONO % 6.2 % (0.0-8.0); MONOCYTE # 0.8 TH/MM3 (0-0.9); NEUT % 88.9 % (16.0-70.0); PLATELET COUNT 276 TH/MM3 (150-450); RED BLOOD COUNT 3.38 MIL/MM3 (4.50-5.90); RED CELL DISTRIBUTION WIDTH 14.2 % (11.6-17.2); WHITE BLOOD COUNT 13.4 TH/MM3 (4.0-11.0)
[2017-04-27] MEDS: SODIUM CHLOR 0.9% 1000 ML INJ 1,000 ML IV SCH ×2 (09:22→21:39)
[2017-04-27] MEDS ORDERED: ONDANSETRON HCL 4 MG/2 ML VIAL IVP PRN (09:30)
[2017-04-27] MEDS ORDERED: SODIUM CHLORIDE 0.9% FLUSH 10 ML FLUSH IV FLUSH PRN (09:30)
[2017-04-27] MEDS ORDERED: ACETAMINOPHEN 325 MG TAB PO PRN (09:30)
[2017-04-27] MEDS ORDERED: RESP: ALBUTEROL 2.5 MG/IPRATROPIUM 0.5 MG NEB (PRN) NEB (09:30)
[2017-04-27] MEDS ORDERED: NALOXONE HCL 0.4 MG/ML AMP IV PUSH PRN (09:30)
--- NOTE | 2017-04-27 09:52 | HHI.HP ---
HPI Service [facility] Primary Care Physician Lachelle King MD Admission Diagnosis LLL PNA, R/O PE Diagnoses: Chief Complaint: "I was dying" Travel History International Travel<30 Days: No Contact w/Intl Traveler <30 Da: No Traveled to Known Affected Are: No Sepsis Criteria SIRS Criteria (2 or more): WBC > 49941, < 4000 or > 10% bands History of Present Illness Patient is a 86-year-old gentleman came to the hospital complaining of left- sided chest pain with associated cough and increased work of breathing and dyspnea on exertion. Patient appears to have pneumonia on my review of his x- ray. Cough is improved. Patient was started on IV antibiotics. He was hypoxemic with 88% on arrival to the emergency room requiring O2. Patient feels a bit better now. He reports no nausea or vomiting or constipation. Normally he is ambulatory and active cutting grass at his residence. Review of Systems Constitutional: DENIES: Diaphoretic episodes, Fatigue, Fever, Weight gain, Weight loss, Chills, Dizziness, Change in appetite, Night Sweats Endocrine: DENIES: Heat/cold intolerance, Polydipsia, Polyuria, Polyphagia Eyes: DENIES: Blurred vision, Diplopia, Eye inflammation, Eye pain, Vision loss , Photosensitivity, Double Vision Ears, nose, mouth, throat: DENIES: Tinnitus, Hearing loss, Vertigo, Nasal discharge, Oral lesions, Throat pain, Hoarseness, Ear Pain, Running Nose, Epistaxis, Sinus Pain, Toothache, Odynophagia Respiratory: COMPLAINS OF: Cough, DENIES: Apneas, Snoring, Wheezing, Hemoptysis , Sputum production, Shortness of breath Cardiovascular: COMPLAINS OF: Chest pain, Dyspnea on Exertion, Lower Extremity Edema (Intermittently on the right side since his stroke), DENIES: Palpitations , Syncope, PND, Orthopnea, Claudication Gastrointestinal: DENIES: Abdominal pain, Black stools, Bloody stools, Constipation, Diarrhea, Nausea, Vomiting, Difficulty Swallowing, Anorexia Genitourinary: DENIES: Sexual dysfunction, Urinary frequency, Urinary incontinence, Urgency, Hematuria, Dysuria, Nocturia, Penile Discharge, Testicular Pain, Testicular Swelling Musculoskeletal: DENIES: Joint pain, Muscle aches, Stiffness, Joint Swelling, Back pain, Neck pain Integumentary: DENIES: Abnormal pigmentation, Nail changes, Pruritus, Rash Hematologic/lymphatic: DENIES: Bruising, Lymphadenopathy Immunologic/allergic: DENIES: Eczema, Urticaria Neurologic: DENIES: Abnormal gait, Headache, Localized weakness, Paresthesias, Seizures, Speech Problems, Tremor, Poor Balance Psychiatric: DENIES: Anxiety, Confusion, Mood changes, Depression, Hallucinations, Agitation, Suicidal Ideation, Homicidal Ideation, Delusions Except as stated in HPI: all other systems reviewed are Neg Past Family Social History Past Medical History Hypertension Hyperlipidemia History of CVA, right-sided weakness Skin cancer status post graft Past Surgical History Back surgery, left partial corneal transplant Right temporal skin graft Reported Medications Reviewed in the EMR Allergies: Coded Allergies: penicillin G (Unverified Allergy, Intermediate, RASH, 04/27/17) Active Ordered Medications Reviewed in the EMR Family History Noncontributory as to family history this patient does not recall Social History Remote tobacco, quit in the Lives with his son, no alcohol dependency Physical Exam Vital Signs Vital Signs Date Time Temp Pulse Resp B/P (MAP) Pulse Ox O2 Delivery O2 Flow Rate FiO2 04/27/17 09:26 86 18 123/76 (92) 96 Nasal Cannula 2.00 04/27/17 08:10 97 Nasal Cannula 2.00 04/27/17 08:10 97 Nasal Cannula 2.00 04/27/17 08:03 98.4 83 16 119/78 (92) 88 Physical Exam GENERAL: This is a well-nourished, well-developed patient, in no apparent distress. SKIN: right temporal graft. No rashes, ecchymoses or lesions. Cool and dry. HEAD: Atraumatic. Normocephalic. No temporal or scalp tenderness. EYES: Pupils equal round and reactive. Extraocular motions intact. left eye is sclerotic,. No injection or drainage. ENT: Nose without bleeding, purulent drainage or septal hematoma. Throat without erythema, tonsillar hypertrophy or exudate. Uvula midline. Airway patent. NECK: Trachea midline. No JVD or lymphadenopathy. Supple, nontender, no meningeal signs. CARDIOVASCULAR: Regular rate and rhythm without murmurs, gallops, or rubs. RESPIRATORY: Clear to auscultation. Breath sounds equal bilaterally. No wheezes , rales, or rhonchi. GASTROINTESTINAL: Abdomen soft, non-tender, nondistended. No hepato-splenomegaly , or palpable masses. No guarding. MUSCULOSKELETAL: Extremities without clubbing, cyanosis, or edema. No joint tenderness, effusion, or edema noted. No calf tenderness. Negative Homans sign bilaterally. NEUROLOGICAL: Awake and alert. Cranial nerves II through XII intact. Motor and sensory grossly within normal limits. right side 4/5, left Five out of 5 muscle strength in all muscle groups. Normal speech. Laboratory Laboratory Tests Test 04/27/17 07:59 White Blood Count 13.4 Red Blood Count 3.38 Hemoglobin 10.3 Hematocrit 29.8 Mean Corpuscular Volume 88.2 Mean Corpuscular Hemoglobin 30.4 Mean Corpuscular Hemoglobin Concent 34.4 Red Cell Distribution Width 14.2 Platelet Count 276 Mean Platelet Volume 7.2 Neutrophils (%) (Auto) 88.9 Lymphocytes (%) (Auto) 3.8 Monocytes (%) (Auto) 6.2 Eosinophils (%) (Auto) 0.8 Basophils (%) (Auto) 0.3 Neutrophils # (Auto) 12.0 Lymphocytes # (Auto) 0.5 Monocytes # (Auto) 0.8 Eosinophils # (Auto) 0.1 Basophils # (Auto) 0.0 CBC Comment DIFF FINAL Differential Comment Prothrombin Time 11.5 Prothromb Time International Ratio 1.1 Activated Partial Thromboplast Time 29.0 Blood Urea Nitrogen 30 Creatinine 1.70 Random Glucose 115 Total Protein 7.3 Albumin 2.4 Calcium Level 8.5 Alkaline Phosphatase 65 Aspartate Amino Transf (AST/SGOT) 12 Alanine Aminotransferase (ALT/SGPT) 11 Total Bilirubin 0.7 Sodium Level 137 Potassium Level 4.7 Chloride Level 104 Carbon Dioxide Level 25.2 Anion Gap 8 Estimat Glomerular Filtration Rate 38 Total Creatine Kinase 36 Troponin I LESS THAN 0.02 B-Type Natriuretic Peptide 72 Lipase 139 Result Diagram: 04/27/17 0759 04/27/17 0759 Imaging Last Impressions Chest X-Ray 04/27/17 0754 Signed Impressions: Service Date/Time: Thursday, April 27, 2017 08:01 - CONCLUSION: Developing parenchymal consolidation left lower lobe. Raúl Avendaño MD FACR Caprini VTE Risk Assessment Caprini VTE Risk Assessment: Mod/High Risk (score >= 2) Caprini Risk Assessment Model Point Value = 1 Point Value = 2 Point Value = 3 Point Value = 5 Age 41-60 Minor surgery BMI > 25 kg/m2 Swollen legs Varicose veins or History of unexplained or recurrent spontaneous Oral contraceptives or hormone replacement Sepsis (< 1 month) Serious lung disease, including pneumonia (< 1 month) Abnormal pulmonary function Acute myocardial infarction Congestive heart failure (< 1 month) History of inflammatory bowel disease Medical patient at bed rest Age 61-74 Arthroscopic surgery Major open surgery (> 45 min) Laparoscopic surgery (> 45 min) Malignancy Confined to bed (> 72 hours) Immobilizing plaster cast Central venous access Age >= 75 History of VTE Family history of VTE Factor V Leiden Prothrombin [id number] Lupus anticoagulant Anticardiolipin antibodies Elevated serum homocysteine Heparin-induced thrombocytopenia Other congenital or acquired thrombophilia Stroke (< 1 month) Elective arthroplasty Hip, pelvis, or leg fracture Acute spinal cord injury (< 1 month) Prophylaxis Regimen Total Risk Factor Score Risk Level Prophylaxis Regimen 0-1 Low Early ambulation 2 Moderate Order ONE of the following: *Sequential Compression Device (SCD) *Heparin 5000 units SQ BID 3-4 Higher Order ONE of the following medications: *Heparin 5000 units SQ TID *Enoxaparin/Lovenox 40 mg SQ daily (WT < 150 kg, CrCl > 30 mL/min) *Enoxaparin/Lovenox 30 mg SQ daily (WT < 150 kg, CrCl > 10-29 mL/min) *Enoxaparin/Lovenox 30 mg SQ BID (WT < 150 kg, CrCl > 30 mL/min) AND/OR *Sequential Compression Device (SCD) 5 or more Highest Order ONE of the following medications: *Heparin 5000 units SQ TID (Preferred with Epidurals) *Enoxaparin/Lovenox 40 mg SQ daily (WT < 150 kg, CrCl > 30 mL/min) *Enoxaparin/Lovenox 30 mg SQ daily (WT < 150 kg, CrCl > 10-29 mL/min) *Enoxaparin/Lovenox 30 mg SQ BID (WT < 150 kg, CrCl > 30 mL/min) AND *Sequential Compression Device (SCD) Assessment and Plan Problem List: (1) Pneumonia ICD Code: J18.9 - Pneumonia, unspecified organism Plan: IV abx, follow up flu pending (2) History of CVA (cerebrovascular accident) ICD Code: Z86.73 - Personal history of transient ischemic attack (TIA), and cerebral infarction without residual deficits Status: Acute Plan: Patient with residual right-sided weakness and with a cane at home. Otherwise pretty stable. PT for rehab efforts (3) Hypoxemia ICD Code: R09.02 - Hypoxemia Plan: Patient with evidence of respiratory failure, continue O2, Bronchodilators as needed remote tobacco exposure (4) CKD (chronic kidney disease) stage 3, GFR 30-59 ml/min ICD Code: N18.3 - Chronic kidney disease, stage 3 (moderate) Plan: Avoid nephrotoxic injuries, follow-up ins and outs Code Status DNR Discussed Condition With Patient, RILEYMercedes GILLIS Physician Certification 2 Midnight Certification Type: Admission for Inpatient Services Order for Inpatient Services The services are ordered in accordance with Medicare regulations or non- Medicare payer requirements, as applicable. In the case of services not specified as inpatient-only, they are appropriately provided as inpatient services in accordance with the 2-midnight benchmark. Estimated LOS (days): 3 3 days is the estimated time the patient will need to remain in the hospital, assuming treatment plan goals are met and no additional complications. Post-Hospital Plan: Home Rosa M Hernandez MD Apr 27, 2017 09:52
[2017-04-27] MEDS: guaiFENesin/CODEINE SYRUP 200 MG/20 MG/10 ML CUP PO PRN ×2 (10:16→16:46)
[2017-04-27] MEDS ORDERED: MORPHINE SULFATE 2 MG/ML INJ IV PUSH PRN (11:00)
--- NOTE | 2017-04-27 11:51 | RADRPT ---
EXAM DATE/TIME: 04/27/2017 11:03 [facility] COMPARISON: CHEST SINGLE AP, April 27, 2017, 8:01. INDICATIONS : Chest pain and dyspnea. Pneumonia. DOSE: 1.3 mCi Tc99m DTPA 8.7 mCi Tc99m MAA MEDICAL HISTORY : Cerebrovascular disease. Hypertension. SURGICAL HISTORY : Discectomy, lumbar. Tonsillectomy. ENCOUNTER: Initial ACUITY: 1 day PAIN SCALE: 0/10 LOCATION: Bilateral chest TECHNIQUE: Following five minutes of tidal breathing of DTPA aerosol, planar images of the lungs were performed in eight projections. The patient was then injected with MAA, and eight-view perfusion scan was perf ormed. FINDINGS: Marked ventilatory defect is evident with patchy ventilation. Perfusion is more symmetric and homogeneous than ventilation. There is no significant V/Q mismatches. CONCLUSION: Low probability for PE with moderate ventilatory defects.. Raúl Avendaño MD FACR on April 27, 2017 at 11:49 Board Certified Radiologist. This report was verified electronically.
[2017-04-27] MEDS: prednisoLONE ACETATE 1% OPHT SUSP 5 ML BTL LEFT EYE SCH ×3 (12:50→21:41)
[2017-04-27] MEDS: RESP: ALBUTEROL 2.5 MG/IPRATROPIUM 0.5 MG NEB (SCH) NEB ×2 (14:01→20:08)
[2017-04-27] MEDS: SENNOSIDES 8.6 MG TAB PO PRN (14:22)
[2017-04-27] MEDS: SODIUM CHLORIDE 0.9% FLUSH 10 ML FLUSH IV FLUSH SCH (21:39)
[2017-04-27] MEDS: methylPREDNISolone SOD SUCC 40 MG/1 ML VIAL IV PUSH SCH (21:40)
[2017-04-27] MEDS: OFLOXACIN 0.3% OPTH SOLN 5 ML BTL LEFT EYE SCH (21:40)
[2017-04-27] MEDS: HEPARIN SODIUM - SQ 10,000 UNITS/ML VIAL SQ SCH (21:41)
[2017-04-28] VITALS (7 sets, daily range): BP systolic 105–138; BP diastolic 54–69; PULSE 76–89; RESP 16–18; TEMP 97.1–98.4; O2SAT 92–97
[2017-04-28] MEDS: SODIUM CHLOR 0.9% 1000 ML INJ 1,000 ML IV SCH ×2 (05:42→14:17)
[2017-04-28 06:36] LABS: AUTOMATED NEUTROPHIL # 13.6 TH/MM3 (1.8-7.7); BASOPHIL % 0.1 % (0.0-2.0); EOSINOPHIL % 0.1 % (0.0-4.0); HEMATOCRIT 27.9 % (39.0-51.0); LYMPH % 1.6 % (9.0-44.0); LYMPHOCYTE # 0.2 TH/MM3 (1.0-4.8); MEAN CELL VOLUME 87.7 FL (80.0-100.0); MEAN CORPUSCULAR HEMOGLOBIN 28.3 PG (27.0-34.0); MEAN CORPUSCULAR HGB CONC 32.3 % (32.0-36.0); MEAN PLATELET VOLUME 6.8 FL (7.0-11.0); MONO % 1.9 % (0.0-8.0); MONOCYTE # 0.3 TH/MM3 (0-0.9); NEUT % 96.3 % (16.0-70.0); PLATELET COUNT 237 TH/MM3 (150-450); RED BLOOD COUNT 3.18 MIL/MM3 (4.50-5.90); RED CELL DISTRIBUTION WIDTH 13.8 % (11.6-17.2); WHITE BLOOD COUNT 14.1 TH/MM3 (4.0-11.0)
[2017-04-28 06:45] LABS: CALCIUM 7.9 MG/DL (8.5-10.1)
[2017-04-28 06:46] LABS: BICARBONATE 23.8 MEQ/L (21.0-32.0)
[2017-04-28 06:49] LABS: CREATININE 1.7 MG/DL (0.60-1.30)
--- NOTE | 2017-04-28 07:35 | HHI.FF ---
Face to Face Verification Diagnosis: (1) History of CVA (cerebrovascular accident) (2) Pneumonia (3) Hypoxemia Physical Therapy Order: Evaluate and Treat, Improve ambulation, Strength and gait training Home Health Nursing Order: Medical education Signs/symptoms of disease process Nursing assessment with vital signs I have seen patient Tj Bryan on 04/28/17. My clinical findings support the need for the requested home health care services because: Deconditioned w/ increased weakness Limited ability to care for self I certify that my clinical findings support that this patient is homebound because: Unsteady gait/balance Guy Lucero Apr 28, 2017 07:35
[2017-04-28] MEDS: RESP: ALBUTEROL 2.5 MG/IPRATROPIUM 0.5 MG NEB (SCH) NEB ×3 (07:46→19:24)
[2017-04-28] MEDS: methylPREDNISolone SOD SUCC 40 MG/1 ML VIAL IV PUSH SCH ×2 (07:56→20:33)
[2017-04-28] MEDS: OFLOXACIN 0.3% OPTH SOLN 5 ML BTL LEFT EYE SCH ×3 (07:57→20:32)
[2017-04-28] MEDS: LISINOPRIL 20 MG TAB PO SCH (07:58)
[2017-04-28] MEDS: PRAVASTATIN SOD 40 MG TAB PO SCH (07:58)
[2017-04-28] MEDS: HEPARIN SODIUM - SQ 10,000 UNITS/ML VIAL SQ SCH ×2 (07:58→20:33)
[2017-04-28] MEDS: prednisoLONE ACETATE 1% OPHT SUSP 5 ML BTL LEFT EYE SCH ×4 (07:58→20:33)
[2017-04-28 08:02] LABS: OVALOCYTES 1+ (NORMAL)
[2017-04-28 08:03] LABS: TOXIC GRANULATION 1+ (NORMAL)
[2017-04-28] MEDS: SODIUM CHLORIDE 0.9% FLUSH 10 ML FLUSH IV FLUSH SCH ×2 (09:00→20:33)
[2017-04-28] MEDS ORDERED: LEVOFLOXACIN 500 MG PREMIX INJ 100 ML IV SCH (11:00)
[2017-04-28] MEDS: ACETAMINOPHEN/HYDROcodone 325 MG/7.5 MG TAB PO PRN ×2 (11:06→16:32)
--- NOTE | 2017-04-28 11:58 | HHI.PR ---
Subjective Remarks Patient seen today in follow-up for pneumonia, left-sided with associated pleuritic pain. No further fevers Objective Vitals Vital Signs Date Time Temp Pulse Resp B/P (MAP) Pulse Ox O2 Delivery O2 Flow Rate FiO2 04/28/17 08:00 98.4 76 18 109/54 (72) 94 04/28/17 07:40 94 2.00 04/28/17 04:29 04/28/17 00:06 97.9 89 18 105/60 (75) 97 04/27/17 20:22 98.0 103 20 107/56 (73) 96 04/27/17 20:11 92 Nasal Cannula 2.00 04/27/17 18:00 18 04/27/17 15:50 100.4 95 20 133/60 (84) 92 I/O 04/27/17 04/27/17 04/27/17 04/28/17 04/28/17 04/28/17 06:59 14:59 22:59 06:59 14:59 22:59 Intake Total 1050 ml 1658 ml 795 ml Output Total 550 ml Balance 1050 ml 1658 ml 795 ml -550 ml Intake Oral 310 ml IV Total 1050 ml 1348 ml 795 ml Output Urine Total 550 ml # Voids 2 1 1 Result Diagram: 04/28/17 0543 04/28/17 0543 Imaging Last Impressions Lung Scan-V Nuclear Medicine 04/27/17 0823 Signed Impressions: Service Date/Time: Thursday, April 27, 2017 11:03 - CONCLUSION: Low probability for PE with moderate ventilatory defects.. Raúl Avendaño MD FACR Chest X-Ray 04/27/17 0754 Signed Impressions: Service Date/Time: Thursday, April 27, 2017 08:01 - CONCLUSION: Developing parenchymal consolidation left lower lobe. Raúl Avendaño MD FACR Objective Remarks Left eye is sclerotic GENERAL: This is a well-nourished, well-developed patient, elderly male with intentional tremor CARDIOVASCULAR: Regular rate and rhythm without murmurs, gallops, or rubs. RESPIRATORY: Decreased air flow secondary to discomfort and overall clear GASTROINTESTINAL: Abdomen soft, non-tender, nondistended. Normal active bowel sounds MUSCULOSKELETAL: Extremities without clubbing, cyanosis, or edema. NEURO: Alert & Oriented x4 to person, place, time, situation. Moves all ext x4 A/P Problem List: (1) Pneumonia ICD Code: J18.9 - Pneumonia, unspecified organism Plan: IV Levaquin, follow up Flu is negative (2) History of CVA (cerebrovascular accident) ICD Code: Z86.73 - Personal history of transient ischemic attack (TIA), and cerebral infarction without residual deficits Status: Acute Plan: Patient with residual right-sided weakness and with a cane at home. Otherwise pretty stable. PT for rehab efforts (3) Hypoxemia ICD Code: R09.02 - Hypoxemia Plan: Patient with evidence of respiratory failure,IV Steroids continue O2, Bronchodilators as needed remote tobacco exposure (4) CKD (chronic kidney disease) stage 3, GFR 30-59 ml/min ICD Code: N18.3 - Chronic kidney disease, stage 3 (moderate) Plan: Avoid nephrotoxic injuries, follow-up ins and outs (5) Chest pain ICD Code: R07.9 - Chest pain, unspecified Plan: Likely pleuritic in nature,Continue with supportive care, follow-up CT of the chest to rule out infarct or other lesions (6) Anemia ICD Code: D64.9 - Anemia, unspecified Plan: Appears to be chronic related to kidney disease, will follow iron levels (7) Hypotension ICD Code: I95.9 - Hypotension, unspecified Plan: Follow-up blood cultures, will give some IV hydration, home medications with parameters Assessment and Plan heparin sq Discharge Planning 2-3 days pending progress Rosa M Hernandez MD Apr 28, 2017 11:58
[2017-04-28] MEDS ORDERED: SODIUM CHLORID 0.9% 500 ML INJ 500 ML IV ONE (12:00)
--- NOTE | 2017-04-28 12:15 | RADRPT ---
EXAM DATE/TIME: 04/28/2017 11:48 [facility] COMPARISON: CHEST SINGLE AP, April 27, 2017, 8:01. INDICATIONS : Abnormal chest xray. RADIATION DOSE: 17.80 CTDIvol (mGy) Dose Comments: MEDICAL HISTORY : Cerebrovascular disease. Myocardial infarction. Hypertension. Anticoagulant therapy. Skin cancer. SURGICAL HISTORY : Cardia catheterization. Spinal surgery. ENCOUNTER: Initial ACUITY: 2 days PAIN SCALE: 0/10 LOCATION: Left chest TECHNIQUE: Volumetric scanning of the chest was performed. Using automated exposure control and adjustment of t he mA and/or kV according to patient size, radiation dose was kept as low as reasonably achievable to obtain optimal diagnostic quality images. DICOM format image data is available electronically for r eview and comparison. Follow-up recommendations for detected pulmonary nodules are based at a minimum on nodule size and pa tient risk factors according to Fleischner Society Guidelines. FINDINGS: Breathing motion degraded. LUNGS: High density material is seen within the peripheral airways of both lower lobes but more pronounced o n the left. Consolidation is seen involving the left lower lobe with a few small air bronchograms. A small area consolidation which is somewhat curvilinear in nature is seen within the right lung base. Emphysematous changes noted. PLEURAE: Small left and tiny right pleural effusions. Both are freely flowing. MEDIASTINUM: The heart and great vessels demonstrate no acute abnormality. There is no mediastinal or hilar lymph adenopathy. AXILLAE: Within normal limits. No lymphadenopathy. MUSCULOSKELETAL: Within normal limits for patient age. MISCELLANEOUS: The visualized upper abdominal organs demonstrate no acute abnormality. CONCLUSION: 1. Bibasilar consolidations left more so than right with bilateral pleural effusions. There is high d ensity material involving the peripheral lung bases. This constellation of findings suggests chronic aspiration Rehan Elena Jr., MD on April 28, 2017 at 12:10 Board Certified Radiologist. This report was verified electronically.
[2017-04-28] MEDS: guaiFENesin/CODEINE SYRUP 200 MG/20 MG/10 ML CUP PO PRN ×2 (13:05→17:32)
[2017-04-28 14:04] LABS: % SATURATION IRON PROFILE 9.4 % (20-50); IRON (FE) 15 MCG/DL (65-175); TOTAL IRON BINDING CAPACITY 160 MCG/DL (250-450)
[2017-04-28] MEDS: CLINDAMYCIN 300 MG/NS PREMIX 50 ML IV SCH ×2 (14:16→20:43)
[2017-04-28] MEDS ORDERED: BISACODYL EC 5 MG TABEC PO PRN (17:30)
[2017-04-29] VITALS (7 sets, daily range): BP systolic 112–138; BP diastolic 60–68; PULSE 77–98; RESP 16–20; TEMP 95.8–97; O2SAT 92–96
[2017-04-29] MEDS: SODIUM CHLOR 0.9% 1000 ML INJ 1,000 ML IV SCH ×2 (00:15→10:46)
[2017-04-29] MEDS: CLINDAMYCIN 300 MG/NS PREMIX 50 ML IV SCH ×4 (02:05→21:27)
[2017-04-29 06:41] LABS: AUTOMATED NEUTROPHIL # 22.5 TH/MM3 (1.8-7.7); BASOPHIL % 0.1 % (0.0-2.0); HEMATOCRIT 26.6 % (39.0-51.0); HEMOGLOBIN 9.3 GM/DL (13.0-17.0); LYMPH % 1.5 % (9.0-44.0); LYMPHOCYTE # 0.3 TH/MM3 (1.0-4.8); MEAN CORPUSCULAR HEMOGLOBIN 30.8 PG (27.0-34.0); MEAN PLATELET VOLUME 6.9 FL (7.0-11.0); MONO % 1.8 % (0.0-8.0); MONOCYTE # 0.4 TH/MM3 (0-0.9); NEUT % 96.6 % (16.0-70.0); PLATELET COUNT 231 TH/MM3 (150-450); RED BLOOD COUNT 3.02 MIL/MM3 (4.50-5.90); WHITE BLOOD COUNT 23.2 TH/MM3 (4.0-11.0)
[2017-04-29 06:56] LABS: CALCIUM 7.7 MG/DL (8.5-10.1)
[2017-04-29 07:00] LABS: CREATININE 1.7 MG/DL (0.60-1.30)
[2017-04-29] MEDS: RESP: ALBUTEROL 2.5 MG/IPRATROPIUM 0.5 MG NEB (SCH) NEB ×3 (07:51→19:37)
--- NOTE | 2017-04-29 08:51 | MB ---
cc: Rick Davies MD DATE OF CONSULT: 04/28/2017 REQUESTING PHYSICIAN: Dr. Rosa M Hernandez REASON FOR CONSULTATION: Pneumonia and pleural effusion. HISTORY OF PRESENT ILLNESS: Mr. Bryan is a pleasant 86-year-old male with a history of carotid artery surgery, CVA with right-sided weakness. He is now up, around and active. He came to the hospital with left-sided chest pain more so when he takes a deep breath or sneezing. He is not able to bring up any phlegm. No fever or chills. No night sweats. The patient was evaluated in the emergency room. He had a V/Q scan done which shows low probability for pulmonary embolism. He had a CT scan of the chest done which shows basilar consolidation left more than right, bilateral pleural effusion and high density material involving the peripheral lung bases possibly suggestive of chronic aspiration. His CBC showed a WBC count of 14.1, hemoglobin 9.0, hematocrit 27.9, MCV 87, platelet count 237. Sodium 139, potassium 4.8, chloride 109, CO2 of 24, BUN 30, creatinine 1.70. Blood cultures so far are negative. Influenza antigen is negative. PAST MEDICAL HISTORY: Significant for a history of CVA with right-sided weakness, carotid artery surgery, hypertension, hyperlipidemia, history of skin cancer and he had a skin graft surgery, history of back surgery. MEDICATIONS: He is currently taking Levaquin q.24 hours, aspirin 81 mg a day, clindamycin IV, hydrocodone for pain, lisinopril 20 mg a day, pravastatin 40 mg a day, ofloxacin eye drops, Solu-Medrol 40 mg q.12 hours, heparin 5000 q.12 hours, albuterol/Atrovent nebulizer treatment, prednisone eye drops, Robitussin AC cough syrup. ALLERGIES: ALLERGIC TO PENICILLIN G. SOCIAL HISTORY: He is a and lives with his son. No history of smoking or alcohol abuse. 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 FAMILY HISTORY: He has 3 children. REVIEW OF SYSTEMS: The patient is able to ambulate without assistance and he rides around and mows his lawn. Weight is stable. Occasional coughing spells when he eats. No DVT or pulmonary embolism. PHYSICAL EXAMINATION: GENERAL: This is a pleasant elderly male not in acute distress. His son is at the bedside. VITAL SIGNS: Blood pressure 138/69, heart rate 77, respirations 18, temperature 98.1. HEENT: Pupils are equal, round, and reactive to light. Oral mucosa and nasal mucosa normal. NECK: Supple. JVD not raised. CHEST: Air entry equal bilaterally. He has decreased breath sounds at the bases. CARDIOVASCULAR: S1 and S2 normal. ABDOMEN: Benign. EXTREMITIES: No edema. IMPRESSION: 1. Left pleuritic chest pain likely from pneumonia. He had a CT scan of the chest done. No evidence of any rib fractures noted. 2. Mild pleural effusion. 3. He has possible aspiration. 4. History of CVA and carotid artery surgery. PLAN: I discussed with the patient and his son we will continue antibiotic clindamycin and Levaquin, supplement his oxygen, aerosol treatment, encourage him to use incentive spirometry. We will get speech therapy evaluation to make sure he is safe to swallow food. Further treatment will depend upon his course in the hospital. We will monitor his pleural effusion. If there is an increase in the effusion, then we will consider thoracentesis. Thank you, Dr. Rosa M Hernandez, for this consult. Rick Davies MD ADA/DL/ , 07:16 PM , 06:49 AM MTDD
[2017-04-29] MEDS: OFLOXACIN 0.3% OPTH SOLN 5 ML BTL LEFT EYE SCH ×2 (10:03→21:27)
[2017-04-29] MEDS: ASPIRIN 81 MG CHEW TAB CHEW SCH (10:03)
[2017-04-29] MEDS: methylPREDNISolone SOD SUCC 40 MG/1 ML VIAL IV PUSH SCH (10:03)
[2017-04-29] MEDS: SODIUM CHLORIDE 0.9% FLUSH 10 ML FLUSH IV FLUSH SCH ×2 (10:03→21:27)
[2017-04-29] MEDS: prednisoLONE ACETATE 1% OPHT SUSP 5 ML BTL LEFT EYE SCH ×4 (10:03→21:27)
[2017-04-29] MEDS: HEPARIN SODIUM - SQ 10,000 UNITS/ML VIAL SQ SCH ×2 (10:04→21:27)
[2017-04-29] MEDS: PRAVASTATIN SOD 40 MG TAB PO SCH (10:04)
[2017-04-29] MEDS: LISINOPRIL 20 MG TAB PO SCH (10:04)
--- NOTE | 2017-04-29 11:18 | RADRPT ---
EXAM DATE/TIME: 04/29/2017 10:49 [facility] COMPARISON: No previous studies available for comparison. INDICATIONS : Left pleural effusion. MEDICAL HISTORY : Stroke. Hypercholesterolemia. Hypertension. Hyperlipidemia. SURGICAL HISTORY : Tonsillectomy. Cardiac cath. Spinal fusion. ENCOUNTER: Initial ACUITY: 1 day PAIN SCORE: 10 LOCATION: Left chest MEASUREMENTS: SKIN TO PARIETAL PLEURA: Inadequate fluid SKIN TO MAX SAFE DEPTH: Inadequate fluid ESTIMATED FLUID VOLUME: 155 cc FLUID COMPOSITION: simple FINDINGS: No marking was performed. CONCLUSION: Small left pleural effusion. Insufficient for drainage. Jah Levin MD on April 29, 2017 at 11:16 Board Certified Radiologist. This report was verified electronically.
[2017-04-29] MEDS: LEVOFLOXACIN/DEXTROSE 250 MG/50 ML IV SCH (11:19)
--- NOTE | 2017-04-29 11:19 | RADRPT ---
EXAM DATE/TIME: 04/29/2017 10:49 [facility] COMPARISON: No previous studies available for comparison. INDICATIONS : Right pleural effusion. MEDICAL HISTORY : Stroke. Hypercholesterolemia. Hypertension. Hyperlipidemia. SURGICAL HISTORY : Tonsillectomy. Cardiac cath. Spinal fusion. ENCOUNTER: Initial ACUITY: 1 day PAIN SCORE: 10 LOCATION: Right chest MEASUREMENTS: SKIN TO PARIETAL PLEURA: Inadequate fluid SKIN TO MAX SAFE DEPTH: Inadequate fluid ESTIMATED FLUID VOLUME: 0 cc FLUID COMPOSITION: Inadequate fluid FINDINGS: No marking was performed. CONCLUSION: No evidence of pleural effusion. Jah Levin MD on April 29, 2017 at 11:17 Board Certified Radiologist. This report was verified electronically.
--- NOTE | 2017-04-29 12:32 | HHI.PR ---
Subjective Remarks This patient is seen in follow-up for likely aspiration pneumonia. Overall greatly improved. ID consult is appreciated. Patient tolerating antibiotics without difficulty. His white cell count did go up today but I do believe is from the steroids which we will taper Objective Vitals Vital Signs Date Time Temp Pulse Resp B/P (MAP) Pulse Ox O2 Delivery O2 Flow Rate FiO2 04/29/17 07:52 96 Nasal Cannula 3.00 04/29/17 00:00 96.9 77 16 128/60 (82) 96 04/28/17 20:00 97.1 87 16 107/55 (72) 92 04/28/17 19:24 94 Nasal Cannula 3.00 04/28/17 17:32 20 04/28/17 16:00 98.1 77 18 138/69 (92) 95 I/O 04/28/17 04/28/17 04/28/17 04/29/17 04/29/17 04/29/17 07:00 15:00 23:00 07:00 15:00 23:00 Intake Total 795 ml 1550 ml 120 ml Output Total 550 ml 150 ml Balance 795 ml -550 ml 1550 ml -30 ml Intake Oral 120 ml IV Total 795 ml 1550 ml Output Urine Total 550 ml 150 ml # Voids 1 1 # Bowel Movements 0 Result Diagram: 04/29/17 0535 04/29/17 0535 Imaging Last Impressions Chest Ultrasound 04/29/17 0000 Signed Impressions: Service Date/Time: Saturday, April 29, 2017 10:49 - CONCLUSION: No evidence of pleural effusion. Jah Levin MD Chest CT 04/28/17 0000 Signed Impressions: Service Date/Time: Friday, April 28, 2017 11:48 - CONCLUSION: 1. Bibasilar consolidations left more so than right with bilateral pleural effusions. There is high density material involving the peripheral lung bases. This constellation of findings suggests chronic aspiration Rehan Elena Jr., MD Lung Scan- Nuclear Medicine 04/27/17 0844 Signed Impressions: Service Date/Time: Thursday, April 27, 2017 11:03 - CONCLUSION: Low probability for PE with moderate ventilatory defects.. Raúl Avendaño MD FACR Chest X-Ray 04/27/17 0750 Signed Impressions: Service Date/Time: Thursday, April 27, 2017 08:01 - CONCLUSION: Developing parenchymal consolidation left lower lobe. Raúl Avendaño MD FACR Objective Remarks Left eye is sclerotic GENERAL: This is a well-nourished, well-developed patient, elderly male with intentional tremor CARDIOVASCULAR: Regular rate and rhythm without murmurs, gallops, or rubs. RESPIRATORY: Decreased air flow secondary to discomfort and overall clear GASTROINTESTINAL: Abdomen soft, non-tender, nondistended. Normal active bowel sounds MUSCULOSKELETAL: Extremities without clubbing, cyanosis, or edema. NEURO: Alert & Oriented x4 to person, place, time, situation. Moves all ext x4 A/P Problem List: (1) Pneumonia ICD Code: J18.9 - Pneumonia, unspecified organism Plan: IV Levaquin, clindamycin , follow up Flu is negative Likely aspiration pneumonia with associated respiratory failure (2) History of CVA (cerebrovascular accident) ICD Code: Z86.73 - Personal history of transient ischemic attack (TIA), and cerebral infarction without residual deficits Status: Acute Plan: Patient with residual right-sided weakness and with a cane at home. Otherwise pretty stable. ST/PT for rehab efforts (3) Hypoxemia ICD Code: R09.02 - Hypoxemia Plan: Rodolfo and Dr. Van forPatient with evidence of respiratory failure,IV Steroids continue O2, Bronchodilators as needed remote tobacco exposure (4) CKD (chronic kidney disease) stage 3, GFR 30-59 ml/min ICD Code: N18.3 - Chronic kidney disease, stage 3 (moderate) (5) Chest pain ICD Code: R07.9 - Chest pain, unspecified Plan: Likely pleuritic in nature,Continue with supportive care, follow-up CT does show minimal pleural effusions and pneumonia which will likely explain his pain. It is improved today (6) Anemia ICD Code: D64.9 - Anemia, unspecified Plan: Appears to be chronic related to kidney disease, patient with iron deficiency anemia, will add iron (7) Hypotension ICD Code: I95.9 - Hypotension, unspecified Plan: Improved Assessment and Plan heparin sq Discharge Planning 2-3 days pending progress Rosa M Hernandez MD Apr 29, 2017 12:32
[2017-04-29] MEDS: IRON SUCROSE INJ 100 MG in SODIUM CHLORIDE 0.9% INJ 100 ML IV SCH (15:24)
[2017-04-29] MEDS: SENNOSIDES 8.6 MG TAB PO PRN (17:15)
--- NOTE | 2017-04-29 18:48 | HHI.PR ---
Subjective Remarks 86 YOWM with Lung infilt, pl eff, ch aspiration Breathing better No fever On 2.5 LNC, sat 90-94% Occ cough Objective Vital Signs Vital Signs Date Time Temp Pulse Resp B/P (MAP) Pulse Ox O2 Delivery O2 Flow Rate FiO2 04/29/17 16:00 97.0 94 20 138/68 (91) 95 04/29/17 12:00 97.0 98 20 112/63 (79) 93 04/29/17 08:00 95.8 93 17 125/60 (81) 92 04/29/17 07:52 96 Nasal Cannula 3.00 04/29/17 00:00 96.9 77 16 128/60 (82) 96 04/28/17 20:00 97.1 87 16 107/55 (72) 92 04/28/17 19:24 94 Nasal Cannula 3.00 I/O 04/28/17 04/28/17 04/28/17 04/29/17 04/29/17 04/29/17 07:00 15:00 23:00 07:00 15:00 23:00 Intake Total 795 ml 1550 ml 120 ml 720 ml Output Total 550 ml 150 ml Balance 795 ml -550 ml 1550 ml -30 ml 720 ml Intake Oral 120 ml 420 ml IV Total 795 ml 1550 ml 300 ml Output Urine Total 550 ml 150 ml # Voids 1 1 1 # Bowel Movements 0 0 Result Diagram: 04/29/17 0535 04/29/17 0535 Objective Remarks GENERAL: Elderly male, NAD SKIN: Warm and dry. HEAD: Normocephalic. EYES: No scleral icterus. No injection or drainage. NECK: Supple, trachea midline. No JVD or lymphadenopathy. CARDIOVASCULAR: Regular rate and rhythm without murmurs, gallops, or rubs. RESPIRATORY: Breath sounds equal bilaterally. No accessory muscle use. GASTROINTESTINAL: Abdomen soft, non-tender, nondistended. MUSCULOSKELETAL: No cyanosis, or edema. BACK: Nontender without obvious deformity. No CVA tenderness. A/P Assessment and Plan LLL infilt Atelactesis Pleural eff Pleuritic CP H/O CVA PLAN: Cont Abx Aerosol nebs Pred 20 mg daily Supplement 02 IS, Acapella Will monitor Pl eff Dw Pt and Son and . Rick Davies MD Apr 29, 2017 18:48
[2017-04-30] VITALS (7 sets, daily range): BP systolic 120–126; BP diastolic 62–73; PULSE 72–120; RESP 18–20; TEMP 96.1–97; O2SAT 94–98
[2017-04-30] MEDS: CLINDAMYCIN 300 MG/NS PREMIX 50 ML IV SCH ×3 (01:30→15:07)
[2017-04-30 06:57] LABS: AUTOMATED NEUTROPHIL # 19.6 TH/MM3 (1.8-7.7); EOSINOPHIL % 0.1 % (0.0-4.0); HEMATOCRIT 25.8 % (39.0-51.0); HEMOGLOBIN 8.9 GM/DL (13.0-17.0); LYMPH % 1.2 % (9.0-44.0); LYMPHOCYTE # 0.2 TH/MM3 (1.0-4.8); MEAN CELL VOLUME 88.2 FL (80.0-100.0); MEAN CORPUSCULAR HEMOGLOBIN 30.4 PG (27.0-34.0); MEAN CORPUSCULAR HGB CONC 34.4 % (32.0-36.0); MEAN PLATELET VOLUME 6.8 FL (7.0-11.0); MONO % 3.2 % (0.0-8.0); MONOCYTE # 0.7 TH/MM3 (0-0.9); NEUT % 95.5 % (16.0-70.0); PLATELET COUNT 262 TH/MM3 (150-450); RED BLOOD COUNT 2.93 MIL/MM3 (4.50-5.90); WHITE BLOOD COUNT 20.5 TH/MM3 (4.0-11.0)
[2017-04-30] MEDS: RESP: ALBUTEROL 2.5 MG/IPRATROPIUM 0.5 MG NEB (SCH) NEB ×3 (08:17→20:45)
[2017-04-30] MEDS: HEPARIN SODIUM - SQ 10,000 UNITS/ML VIAL SQ SCH ×2 (08:46→22:51)
[2017-04-30] MEDS: PRAVASTATIN SOD 40 MG TAB PO SCH (08:46)
[2017-04-30] MEDS: ACETAMINOPHEN/HYDROcodone 325 MG/7.5 MG TAB PO PRN ×2 (08:47→15:07)
[2017-04-30] MEDS: prednisoLONE ACETATE 1% OPHT SUSP 5 ML BTL LEFT EYE SCH ×4 (08:47→21:00)
[2017-04-30] MEDS: SODIUM CHLORIDE 0.9% FLUSH 10 ML FLUSH IV FLUSH SCH ×2 (08:47→19:15)
[2017-04-30] MEDS: IRON SUCROSE INJ 100 MG in SODIUM CHLORIDE 0.9% INJ 100 ML IV SCH (08:47)
[2017-04-30] MEDS: OFLOXACIN 0.3% OPTH SOLN 5 ML BTL LEFT EYE SCH ×2 (08:48→22:50)
[2017-04-30] MEDS: predniSONE 20 MG TAB PO SCH (08:51)
[2017-04-30] MEDS: LISINOPRIL 20 MG TAB PO SCH (08:57)
[2017-04-30] MEDS: LEVOFLOXACIN/DEXTROSE 250 MG/50 ML IV SCH (10:52)
[2017-04-30 11:33] LABS: CALCIUM 8.2 MG/DL (8.5-10.1)
[2017-04-30 11:37] LABS: CREATININE 1.7 MG/DL (0.60-1.30)
--- NOTE | 2017-04-30 12:44 | HHI.PR ---
Subjective Remarks Patient seen and evaluated today in follow-up for pneumonia, aspiration and for weakness. Patient complaining of constipation. He is felt his walk test today. [facility]charge [facility] begun [facility]. Discussed with the patient and the family as well as case management Objective Vitals Vital Signs Date Time Temp Pulse Resp B/P (MAP) Pulse Ox O2 Delivery O2 Flow Rate FiO2 04/30/17 12:00 96.1 72 20 94 04/30/17 11:00 3.00 04/30/17 09:47 18 04/30/17 08:18 95 Nasal Cannula 3.00 04/30/17 08:00 96.4 120 20 120/73 (89) 94 04/30/17 00:00 96.2 85 18 126/62 (83) 94 04/29/17 20:00 96.0 88 18 120/61 (80) 94 04/29/17 19:37 94 Nasal Cannula 3.00 04/29/17 16:00 97.0 94 20 138/68 (91) 95 I/O 04/29/17 04/29/17 04/29/17 04/30/17 04/30/17 04/30/17 07:00 15:00 23:00 07:00 15:00 23:00 Intake Total 120 ml 770 ml 105 ml 60 ml Output Total 150 ml 0 ml 450 ml Balance -30 ml 770 ml 105 ml 60 ml -450 ml Intake Oral 120 ml 420 ml 60 ml IV Total 350 ml 105 ml Output Urine Total 150 ml 0 ml 450 ml # Voids 1 1 # Bowel Movements 0 0 Result Diagram: 04/30/17 0632 04/30/17 1040 Objective Remarks Left eye is sclerotic GENERAL: This is a well-nourished, well-developed patient, elderly male with intentional tremor CARDIOVASCULAR: Regular rate and rhythm without murmurs, gallops, or rubs. RESPIRATORY: Decreased air flow secondary to discomfort and overall clear GASTROINTESTINAL: Abdomen soft, non-tender, nondistended. Normal active bowel sounds MUSCULOSKELETAL: Extremities without clubbing, cyanosis, or edema. NEURO: Alert & Oriented x4 to person, place, time, situation. Moves all ext x4 A/P Problem List: (1) Pneumonia ICD Code: J18.9 - Pneumonia, unspecified organism Plan: IV Levaquin, clindamycin , follow up Flu is negative Likely aspiration pneumonia with associated hypoxemic respiratory failure (2) History of CVA (cerebrovascular accident) ICD Code: Z86.73 - Personal history of transient ischemic attack (TIA), and cerebral infarction without residual deficits Status: Acute Plan: Patient with residual right-sided weakness and with a cane at home. Patient will benefit from rehabilitation (3) CKD (chronic kidney disease) stage 3, GFR 30-59 ml/min ICD Code: N18.3 - Chronic kidney disease, stage 3 (moderate) (4) Chest pain ICD Code: R07.9 - Chest pain, unspecified Plan: Pleuritic chest pain is improved (5) Anemia ICD Code: D64.9 - Anemia, unspecified Plan: Appears to be chronic related to kidney disease, patient with iron deficiency anemia, continue iron (6) Hypotension ICD Code: I95.9 - Hypotension, unspecified Plan: Improved (7) Hypoxemia ICD Code: R09.02 - Hypoxemia Plan: Secondary to pneumonia, improved with oxygen Patient did fail his oxygen walk test and will need O2 at discharge Assessment and Plan heparin sq Discharge Planning to snf in Rosa M Jacome MD Apr 30, 2017 12:44
[2017-04-30] MEDS: DOCUSATE SODIUM 100 MG CAP PO SCH ×2 (13:15→21:00)
[2017-04-30] MEDS ORDERED: BISACODYL EC 5 MG TABEC PO ONE (15:00)
[2017-04-30] MEDS: CLINDAMYCIN 150 MG CAP PO SCH ×2 (18:08→22:48)
--- NOTE | 2017-04-30 19:17 | HHI.PR ---
Subjective Remarks 86 YOWM with Lung infilt, pl eff, ch aspiration Breathing better No fever On 2.5 LNC, sat 90-94% Occ cough US Chest small pl eff for TC Objective Vital Signs Vital Signs Date Time Temp Pulse Resp B/P (MAP) Pulse Ox O2 Delivery O2 Flow Rate FiO2 04/30/17 16:07 18 04/30/17 16:00 96.5 89 20 125/62 (83) 95 04/30/17 12:00 96.1 72 20 94 04/30/17 11:00 3.00 04/30/17 08:18 95 Nasal Cannula 3.00 04/30/17 08:00 96.4 120 20 120/73 (89) 94 04/30/17 00:00 96.2 85 18 126/62 (83) 94 04/29/17 20:00 96.0 88 18 120/61 (80) 94 04/29/17 19:37 94 Nasal Cannula 3.00 I/O 04/29/17 04/29/17 04/29/17 04/30/17 04/30/17 04/30/17 07:00 15:00 23:00 07:00 15:00 23:00 Intake Total 120 ml 770 ml 105 ml 60 ml 600 ml Output Total 150 ml 0 ml 450 ml Balance -30 ml 770 ml 105 ml 60 ml 150 ml Intake Oral 120 ml 420 ml 60 ml 600 ml IV Total 350 ml 105 ml Output Urine Total 150 ml 0 ml 450 ml # Voids 1 1 # Bowel Movements 0 0 Result Diagram: 04/30/17 0632 04/30/17 1040 Objective Remarks GENERAL: Elderly male, NAD SKIN: Warm and dry. HEAD: Normocephalic. EYES: No scleral icterus. No injection or drainage. NECK: Supple, trachea midline. No JVD or lymphadenopathy. CARDIOVASCULAR: Regular rate and rhythm without murmurs, gallops, or rubs. RESPIRATORY: Breath sounds equal bilaterally. No accessory muscle use. GASTROINTESTINAL: Abdomen soft, non-tender, nondistended. MUSCULOSKELETAL: No cyanosis, or edema. BACK: Nontender without obvious deformity. No CVA tenderness. A/P Assessment and Plan LLL infilt Atelactesis Pleural eff Pleuritic CP H/O CVA PLAN: Cont Abx Aerosol nebs Pred 20 mg daily Supplement 02 IS, Acapella DC Plans underway. Rick Davies MD Apr 30, 2017 19:17
[2017-05-01] VITALS: BP 111/59; PULSE 85; RESP 20; TEMP 96.7; O2SAT 96
[2017-05-01] MEDS: CLINDAMYCIN 150 MG CAP PO SCH ×2 (05:32→13:16)
[2017-05-01 05:37] LABS: BASOPHIL % 0.1 % (0.0-2.0); EOSINOPHIL % 0.1 % (0.0-4.0); HEMATOCRIT 28.9 % (39.0-51.0); HEMOGLOBIN 9.7 GM/DL (13.0-17.0); LYMPH % 3.6 % (9.0-44.0); LYMPHOCYTE # 0.6 TH/MM3 (1.0-4.8); MEAN CELL VOLUME 88.4 FL (80.0-100.0); MEAN CORPUSCULAR HEMOGLOBIN 29.6 PG (27.0-34.0); MEAN CORPUSCULAR HGB CONC 33.5 % (32.0-36.0); MEAN PLATELET VOLUME 6.6 FL (7.0-11.0); MONOCYTE # 0.8 TH/MM3 (0-0.9); NEUT % 91.2 % (16.0-70.0); PLATELET COUNT 285 TH/MM3 (150-450); RED BLOOD COUNT 3.27 MIL/MM3 (4.50-5.90); RED CELL DISTRIBUTION WIDTH 14.2 % (11.6-17.2); WHITE BLOOD COUNT 16.4 TH/MM3 (4.0-11.0)
[2017-05-01] MEDS: RESP: ALBUTEROL 2.5 MG/IPRATROPIUM 0.5 MG NEB (SCH) NEB (07:29)
[2017-05-01 07:33] VITALS: O2SAT 96
[2017-05-01] MEDS: DOCUSATE SODIUM 100 MG CAP PO SCH (09:00)
[2017-05-01] MEDS ORDERED: LEVOFLOXACIN 250 MG TAB PO SCH (09:00)
[2017-05-01] MEDS: OFLOXACIN 0.3% OPTH SOLN 5 ML BTL LEFT EYE SCH (09:00)
[2017-05-01] MEDS: prednisoLONE ACETATE 1% OPHT SUSP 5 ML BTL LEFT EYE SCH ×2 (09:04→13:16)
[2017-05-01] MEDS: PRAVASTATIN SOD 40 MG TAB PO SCH (09:05)
[2017-05-01] MEDS: predniSONE 20 MG TAB PO SCH (09:05)
[2017-05-01] MEDS: HEPARIN SODIUM - SQ 10,000 UNITS/ML VIAL SQ SCH (09:05)
[2017-05-01] MEDS: ASPIRIN 81 MG CHEW TAB CHEW SCH (09:06)
[2017-05-01 09:19] VITALS: BP 148/69; PULSE 85; RESP 18; TEMP 97; O2SAT 94
[2017-05-01] MEDS: SODIUM CHLORIDE 0.9% FLUSH 10 ML FLUSH IV FLUSH SCH (09:41)
[2017-05-01] MEDS ORDERED: PRED10PA PO (10:35)
[2017-05-01] MEDS ORDERED: LEVA250T14 PO (10:35)
[2017-05-01] MEDS ORDERED: CLIN150 PO (10:35)
--- NOTE | 2017-05-01 10:38 | HHI.DS ---
Discharge Summary Admission Date Apr 27, 2017 at 09:24 Discharge Date: May 01, 2017 Admitting Diagnosis LLL PNA, R/O PE (1) Pneumonia ICD Code: J18.9 - Pneumonia, unspecified organism (2) History of CVA (cerebrovascular accident) ICD Code: Z86.73 - Personal history of transient ischemic attack (TIA), and cerebral infarction without residual deficits Status: Acute (3) CKD (chronic kidney disease) stage 3, GFR 30-59 ml/min ICD Code: N18.3 - Chronic kidney disease, stage 3 (moderate) (4) Chest pain ICD Code: R07.9 - Chest pain, unspecified (5) Anemia ICD Code: D64.9 - Anemia, unspecified (6) Hypotension ICD Code: I95.9 - Hypotension, unspecified (7) Hypoxemia ICD Code: R09.02 - Hypoxemia Procedures none Brief History - From Admission Patient is a 86-year-old gentleman came to the hospital complaining of left- sided chest pain with associated cough and increased work of breathing and dyspnea on exertion. Patient appears to have pneumonia on my review of his x- ray. Cough is improved. Patient was started on IV antibiotics. He was hypoxemic with 88% on arrival to the emergency room requiring O2. Patient feels a bit better now. He reports no nausea or vomiting or constipation. Normally he is ambulatory and active cutting grass at his residence. CBC/BMP: 05/01/17 0510 04/30/17 1040 Significant Findings Laboratory Tests Test 04/29/17 05:35 04/30/17 06:32 04/30/17 10:40 05/01/17 05:10 White Blood Count 23.2 TH/MM3 (4.0-11.0) 20.5 TH/MM3 (4.0-11.0) 16.4 TH/MM3 (4.0-11.0) Red Blood Count 3.02 MIL/MM3 (4.50-5.90) 2.93 MIL/MM3 (4.50-5.90) 3.27 MIL/MM3 (4.50-5.90) Hemoglobin 9.3 GM/DL (13.0-17.0) 8.9 GM/DL (13.0-17.0) 9.7 GM/DL (13.0-17.0) Hematocrit 26.6 % (39.0-51.0) 25.8 % (39.0-51.0) 28.9 % (39.0-51.0) Mean Platelet Volume 6.9 FL (7.0-11.0) 6.8 FL (7.0-11.0) 6.6 FL (7.0-11.0) Neutrophils (%) (Auto) 96.6 % (16.0-70.0) 95.5 % (16.0-70.0) 91.2 % (16.0-70.0) Lymphocytes (%) (Auto) 1.5 % (9.0-44.0) 1.2 % (9.0-44.0) 3.6 % (9.0-44.0) Neutrophils # (Auto) 22.5 TH/MM3 (1.8-7.7) 19.6 TH/MM3 (1.8-7.7) 15.0 TH/MM3 (1.8-7.7) Lymphocytes # (Auto) 0.3 TH/MM3 (1.0-4.8) 0.2 TH/MM3 (1.0-4.8) 0.6 TH/MM3 (1.0-4.8) Blood Urea Nitrogen 35 MG/DL (7-18) 44 MG/DL (7-18) Creatinine 1.70 MG/DL (0.60-1.30) 1.70 MG/DL (0.60-1.30) Random Glucose 168 MG/DL (74-106) 123 MG/DL (74-106) Calcium Level 7.7 MG/DL (8.5-10.1) 8.2 MG/DL (8.5-10.1) Estimat Glomerular Filtration Rate 38 ML/MIN (>89) 38 ML/MIN (>89) Chloride Level 110 MEQ/L (98-107) Imaging Last Impressions Chest Ultrasound 04/29/17 0000 Signed Impressions: Service Date/Time: Saturday, April 29, 2017 10:49 - CONCLUSION: No evidence of pleural effusion. Jah Levin MD Chest CT 04/28/17 0000 Signed Impressions: Service Date/Time: Friday, April 28, 2017 11:48 - CONCLUSION: 1. Bibasilar consolidations left more so than right with bilateral pleural effusions. There is high density material involving the peripheral lung bases. This constellation of findings suggests chronic aspiration Rehan Elena Jr., MD Lung Scan-[facility] Nuclear Medicine 04/27/17 0823 Signed Impressions: Service Date/Time: Thursday, April 27, 2017 11:03 - CONCLUSION: Low probability for PE with moderate ventilatory defects.. Raúl Avendaño MD FACR Chest X-Ray 04/27/17 0754 Signed Impressions: Service Date/Time: Thursday, April 27, 2017 08:01 - CONCLUSION: Developing parenchymal consolidation left lower lobe. Raúl Avendaño MD FACR PE at Discharge Left eye is sclerotic GENERAL: This is a well-nourished, well-developed patient, elderly male with intentional tremor CARDIOVASCULAR: Regular rate and rhythm without murmurs, gallops, or rubs. RESPIRATORY: Decreased air flow secondary to discomfort and overall clear GASTROINTESTINAL: Abdomen soft, non-tender, nondistended. Normal active bowel sounds MUSCULOSKELETAL: Extremities without clubbing, cyanosis, or edema. NEURO: Alert & Oriented x4 to person, place, time, situation. Moves all ext x4 Pt update on day of discharge Doing much better. Discharge plan discussed with patient. Bowel movement 2 overnight. Hemoglobin improved Hospital Course Patient seen and treated for acute respiratory failure secondary to acute aspiration pneumonia. Patient required antibiotics, bronchodilators by nebulizer and had a short course of steroids. The patient did well. He does appear to have significant dysphasia and requires speech therapy for aspiration. Patient also has become hypoxemic and requiring O2 therapy. He does have anemia which appears to be iron deficiency on top of chronic anemia. He received IV iron Pt Condition on Discharge: Good Discharge Disposition: Discharge to SNF Discharge Time: <= 30 minutes Discharge Instructions DIET: Follow Instructions for: As Tolerated, No Restrictions Activities you can perform: Regular-No Restrictions New Medications: Prednisone (21) 10 mg tab Dose Pack (Prednisone (21) 10 mg tab Dose Pack) 10 Mg Pack 10 MG PO DIRECTED for Inflammation, #1 DSPK 0 Refills Clindamycin (Cleocin) 150 Mg Cap 300 MG PO Q6HR for Infection, #6 CAP Levofloxacin (Levaquin) 250 Mg Tablet 250 MG PO DAILY for Infection, #2 TAB Continued Medications: Aspirin (Aspirin) 81 Mg Chew 81 MG CHEW EVERY OTHER DAY, TAB 0 Refills Lisinopril (Prinivil) 5 Mg Tab 20 MG PO DAILY for Blood Pressure Management, #30 TAB 0 Refills Ofloxacin Opth Drops (Ocuflox Opth Drops) 0.3 % Drops 1 DROP LEFT EYE BID for Infection, #1 BOTTLE 0 Refills Prednisolone Acetate Opth 1% (Pred Forte Opth 1%) 1% Susp 1 DROP LEFT EYE QID for Inflammation, #1 BOTTLE 0 Refills Simvastatin (Simvastatin) 20 Mg Tab 20 MG PO DAILY for Cholesterol Management, #30 TAB 0 Refills Rosa M Hernandez MD May 01, 2017 10:38
[2017-05-01] MEDS: IRON SUCROSE INJ 100 MG in SODIUM CHLORIDE 0.9% INJ 100 ML IV SCH (11:33)
[2017-05-01 12:09] VITALS: BP 131/62; PULSE 97; RESP 18; TEMP 96.8; O2SAT 94
[2017-05-01] MEDS: LISINOPRIL 20 MG TAB PO SCH (13:17)
== END 2017-05-01 16:13 | DRG 177 ==
LOC: PHED 07:35 → PHEDA 09:24 → PH3B 10:33
PROVIDERS: ADMIT Hospitalist; ATTEND Hospitalist
DX: J69.0 Pneumonitis due to inhalation of food and vomit (principal); J96.01 Acute respiratory failure with hypoxia; I95.9 Hypotension, unspecified; I69.351 Hemiplegia and hemiparesis following cerebral infarction affecting right dominant side; N18.3 Chronic kidney disease, stage 3 (moderate); D63.1 Anemia in chronic kidney disease; I69.991 Dysphagia following unspecified cerebrovascular disease; J90 Pleural effusion, not elsewhere classified; J91.8 Pleural effusion in other conditions classified elsewhere; J98.11 Atelectasis; I12.9 Hypertensive chronic kidney disease with stage 1 through stage 4 chronic kidney disease, or unspecified chronic kidney disease; E78.5 Hyperlipidemia, unspecified; I25.2 Old myocardial infarction; D50.9 Iron deficiency anemia, unspecified; K59.00 Constipation, unspecified; E78.00 Pure hypercholesterolemia, unspecified; M19.90 Unspecified osteoarthritis, unspecified site; Z66 Do not resuscitate; Z85.828 Personal history of other malignant neoplasm of skin; Z87.891 Personal history of nicotine dependence; Z88.0 Allergy status to penicillin; Z94.7 Corneal transplant status; Z98.1 Arthrodesis status
CPT/HCPCS: 71045; 71250; 76604; 78582; 80048; 80053; 82550; 82607; 82746; 83540; 83550; 83690; 83880; 84484; 85025; 85610; 85730; 87040; 87070; 87205; 87804; 93005; 94150; 94618; 94640; 96361; 96374; 96375; A9540; A9567; J1644; J1756; J1956; J2270; J2920; J7030; J7040; J7512